=== PATIENT | female | born 1940 | race Caucasian/White ===

== ENCOUNTER 2016-11-23 14:59 | Inpatient (IN) | payer MEDICARE, OTHER ==
--- NOTE | 2016-11-24 16:05 | PCM.HP ---
H&P History of Present Illness - General Date of Service: 11/24/16 History Limitations: Reports: No limitations - History of Present Illness Initial Comments - Free Text/Narative: Patient is a 76 year old male is being admitted under swing bed for continued IV antibiotic. Around 3 days prior to her recent admission, she had chills and sudden pain on the left hip. was brought to [facility] and ultrasound showed large fluid collection on the left hip. cultures grew Strep. seen by ID, antibiotics changed to Ancef. it was recommended for the patient to see Dr. Alicea (patient' s ortho who did surgery on the left hip in the past to see if the hardware needs to be removed. currently, pateint denies any pain on the left hip. no chest pain nor shortness of breath. no headache or dizziness. baseline at home, she has regular bowel movements. she started having diarrhea lat night which she describes as having squishy stools. - Related Data Allergies/Adverse Reactions: Allergies Allergy/AdvReac Type Severity Reaction Status Date / Time Sulfa (Sulfonamide Allergy Itching Verified 11/24/16 16:42 Antibiotics) Home Medications: Home Meds Acetaminophen 325 mg PO Q6H PRN 11/24/16 [History] Alendronate [Fosamax] 70 mg PO Q7D@0600 11/24/16 [History] Aspirin [Ecotrin] 81 mg PO DAILY 11/24/16 [History] Atenolol [Tenormin] 50 mg PO DAILY 11/24/16 [History] Benazepril [Lotensin] 40 mg PO DAILY 11/24/16 [History] Brimonidine Tartrate/Timolol [Combigan 0.2%-0.5% Eye Drops] 1 drop EYEBOTH BID 11/24/16 [History] Brinzolamide [Azopt 1% Ophth Susp] 1 drop EYERT BID 11/24/16 [History] Calcium Carbonate/Vitamin D3 [Oyster Shell 500-Vit D3 200 Tb] 1 tab PO DAILY [History] Cyanocobalamin (Vitamin B12) [Vitamin B12] 1,000 mcg IM .MONTHLY 11/24/16 [ History] Hydrochlorothiazide 25 mg PO DAILY 11/24/16 [History] Insulin Glarg,Human.Rec.Analog [Lantus] 65 units SQ BEDTIME 11/24/16 [History] Insulin Lispro [HumaLOG] 16 units SQ TIDMEALS 11/24/16 [History] Latanoprost [Xalatan 0.005% Ophth Soln] 1 drop EYEBOTH BEDTIME 11/24/16 [History ] Lutein/Minerals/Vit A,C & E [Ocuvite] 1 tab PO DAILY 11/24/16 [History] MO/Pet,Wh/Phenylephrine/Shk Lv [Preparation H Oint] 1 applic RECTAL QID PRN [History] Simvastatin [Zocor] 5 mg PO BEDTIME 11/24/16 [History] amLODIPine [Norvasc] 5 mg PO BEDTIME 11/24/16 [History] metFORMIN [Glucophage] 1,000 mg PO BIDMEALS 11/24/16 [History] H&P Review of Systems - Review of Systems: Review Of Systems: See Below General: Reports: no symptoms HEENT: Reports: no symptoms Pulmonary: Reports: no symptoms Cardiovascular: Reports: no symptoms Gastrointestinal: Reports: Diarrhea Genitourinary: Reports: no symptoms Musculoskeletal: Reports: no symptoms Exam - Exam Exam: See Below - Exam General: alert, oriented HEENT: Conjunctiva clear Lungs: Clear to auscultation, Normal respiratory effort Cardiovascular: regular rate, regular rhythm Abdomen: normal bowel sounds, soft Extremities: normal inspection *Q Meaningful Use (ADM) - VTE *Q VTE Criteria *Q: - Stroke *Q Stroke Criteria *Q: - AMI *Q AMI Criteria *Q: - Problem List (1) Left hip pain SNOMED Code(s): 90094853 ICD Code: M25.552 - PAIN IN LEFT HIP Status: Acute Current Visit: Yes (2) Anemia SNOMED Code(s): 365368235 ICD Code: D64.9 - ANEMIA, UNSPECIFIED Status: Acute Current Visit: Yes Problem List Initiated/Reviewed/Updated: Yes Assessment/Plan Comment:: 1. left septic arthritis - continue Ancef - follow up with ortho as scheduled 2. anemia - latest hemoglobin 11/24/16 9.6 from 9.2 - monitor for signs of bleeding 3. diabetes mellitus - reusme insulin and metormin - glucochecks fasting and premeals 4. hypertension - resume hydrochlorothiazide, amlodipine, benazepril and atenolol 5. dyslipidemia - resume simvastatin 6. DVT prophylaxis 7. code status: DNI DNR
[2016-11-24] MEDS ORDERED: ceFAZolin 1 GM Vial IVPUSH SCH (17:15)
[2016-11-24] MEDS ORDERED: Mineral Oil/Petrolatum/Phenylephrine/Shark Liver Oil Oint 57 GM Tube RECTAL PRN (17:15)
[2016-11-24] MEDS: Insulin Aspart 100 Units/ML 3 ML Pen SUBCUT SCH ×2 (18:14)
[2016-11-24] MEDS: metFORMIN 500 MG Tab PO SCH (18:16)
[2016-11-24] MEDS ORDERED: Latanoprost 0.005% Ophth Soln 2.5 ML Bottle EYEBOTH SCH ×2 (21:00→21:21)
[2016-11-24] MEDS ORDERED: Latanoprost 0.005% Ophth Soln 2.5 ML Bottle EYERT SCH (21:21)
[2016-11-24] MEDS: Insulin Detemir 100 Units/ML 3 ML Pen SUBCUT SCH (21:36)
[2016-11-24] MEDS: amLODIPine 5 MG Tab PO SCH (21:40)
[2016-11-24] MEDS: Simvastatin 10 MG Tab PO SCH (21:40)
[2016-11-24] MEDS: TIMOLOL EYEBOTH SCH (21:42)
[2016-11-24] MEDS: BRIMONIDINE TARTRATE EYEBOTH SCH (21:42)
[2016-11-24] MEDS: EYE EYEBOTH SCH (21:42)
[2016-11-24] MEDS: Latanoprost 0.005% Ophth Soln 2.5 ML Bottle EYEBOTH SCH (22:18)
[2016-11-25] MEDS: ceFAZolin 1 GM in Premix Bag 1 BAG IV SCH ×4 (00:12→21:41)
[2016-11-25] MEDS: Sodium Chloride 0.9% 10 ML Syringe FLUSH SCH ×7 (00:47→21:35)
[2016-11-25] MEDS: Insulin Aspart 100 Units/ML 3 ML Pen SUBCUT SCH ×7 (08:49→17:30)
[2016-11-25] MEDS: Aspirin 81 MG Tab.EC PO SCH (08:56)
[2016-11-25] MEDS: metFORMIN 500 MG Tab PO SCH ×2 (08:57→17:30)
[2016-11-25] MEDS: Lutein/Minerals/Vit A,C & E Tab PO SCH (08:57)
[2016-11-25] MEDS: Hydrochlorothiazide 25 MG Tab PO SCH (08:57)
[2016-11-25] MEDS: Benazepril 10 MG Tab PO SCH (08:58)
[2016-11-25] MEDS: Calcium Carbonate/Vitamin D3 1250 MG-200 Unit Tab PO SCH (08:58)
[2016-11-25] MEDS: Atenolol 50 MG Tab PO SCH (09:00)
[2016-11-25] MEDS: Enoxaparin 40 MG/0.4 ML Syringe SUBCUT SCH (09:00)
[2016-11-25] MEDS ORDERED: Cyanocobalamin (Vitamin B12) 1,000 MCG/ML SDV IM SCH (09:00)
[2016-11-25] MEDS: EYE EYEBOTH SCH ×2 (09:09→21:40)
[2016-11-25] MEDS: BRIMONIDINE TARTRATE EYEBOTH SCH ×2 (09:09→21:40)
[2016-11-25] MEDS: TIMOLOL EYEBOTH SCH ×2 (09:09→21:40)
[2016-11-25] MEDS: Latanoprost 0.005% Ophth Soln 2.5 ML Bottle EYEBOTH SCH (21:26)
[2016-11-25] MEDS: Insulin Detemir 100 Units/ML 3 ML Pen SUBCUT SCH (21:32)
[2016-11-25] MEDS: amLODIPine 5 MG Tab PO SCH (21:34)
[2016-11-25] MEDS: Simvastatin 10 MG Tab PO SCH (21:35)
[2016-11-25] MEDS ORDERED: Insulin Detemir 100 Units/ML 3 ML Pen SUBCUT ONE (21:35)
[2016-11-26] MEDS: ceFAZolin 1 GM in Premix Bag 1 BAG IV SCH ×3 (06:03→21:36)
[2016-11-26] MEDS: Insulin Aspart 100 Units/ML 3 ML Pen SUBCUT SCH ×6 (08:27→17:36)
[2016-11-26] MEDS: metFORMIN 500 MG Tab PO SCH ×2 (08:40→17:37)
[2016-11-26] MEDS: Hydrochlorothiazide 25 MG Tab PO SCH (08:41)
[2016-11-26] MEDS: Aspirin 81 MG Tab.EC PO SCH (08:41)
[2016-11-26] MEDS: Lutein/Minerals/Vit A,C & E Tab PO SCH (08:41)
[2016-11-26] MEDS: Calcium Carbonate/Vitamin D3 1250 MG-200 Unit Tab PO SCH (08:41)
[2016-11-26] MEDS: Benazepril 10 MG Tab PO SCH (08:42)
[2016-11-26] MEDS: Atenolol 50 MG Tab PO SCH (08:43)
[2016-11-26] MEDS: Enoxaparin 40 MG/0.4 ML Syringe SUBCUT SCH (08:44)
[2016-11-26] MEDS: TIMOLOL EYEBOTH SCH ×2 (08:47→20:51)
[2016-11-26] MEDS: BRIMONIDINE TARTRATE EYEBOTH SCH ×2 (08:47→20:51)
[2016-11-26] MEDS: EYE EYEBOTH SCH ×2 (08:47→20:51)
[2016-11-26] MEDS: Sodium Chloride 0.9% 10 ML Syringe FLUSH SCH ×4 (09:24→21:35)
[2016-11-26] MEDS ORDERED: Insulin Detemir 100 Units/ML 3 ML Pen SUBCUT SCH (18:13)
[2016-11-26] MEDS: Simvastatin 10 MG Tab PO SCH (20:49)
[2016-11-26] MEDS: amLODIPine 5 MG Tab PO SCH (20:49)
[2016-11-26] MEDS: Latanoprost 0.005% Ophth Soln 2.5 ML Bottle EYEBOTH SCH (20:53)
[2016-11-27] MEDS: ceFAZolin 1 GM in Premix Bag 1 BAG IV SCH ×3 (05:31→22:05)
[2016-11-27] MEDS: Insulin Aspart 100 Units/ML 3 ML Pen SUBCUT SCH ×6 (08:25→17:04)
[2016-11-27] MEDS: Hydrochlorothiazide 25 MG Tab PO SCH (08:28)
[2016-11-27] MEDS: metFORMIN 500 MG Tab PO SCH ×2 (08:28→17:53)
[2016-11-27] MEDS: Lutein/Minerals/Vit A,C & E Tab PO SCH (08:28)
[2016-11-27] MEDS: Calcium Carbonate/Vitamin D3 1250 MG-200 Unit Tab PO SCH (08:28)
[2016-11-27] MEDS: Enoxaparin 40 MG/0.4 ML Syringe SUBCUT SCH (08:28)
[2016-11-27] MEDS: Atenolol 50 MG Tab PO SCH (08:29)
[2016-11-27] MEDS: Aspirin 81 MG Tab.EC PO SCH (08:29)
[2016-11-27] MEDS: Benazepril 10 MG Tab PO SCH (08:30)
[2016-11-27] MEDS: EYE EYEBOTH SCH ×2 (08:37→21:31)
[2016-11-27] MEDS: BRIMONIDINE TARTRATE EYEBOTH SCH ×2 (08:37→21:31)
[2016-11-27] MEDS: TIMOLOL EYEBOTH SCH ×2 (08:37→21:31)
[2016-11-27] MEDS: Sodium Chloride 0.9% 10 ML Syringe FLUSH SCH ×4 (12:26→22:06)
[2016-11-27] MEDS: Simvastatin 10 MG Tab PO SCH (21:22)
[2016-11-27] MEDS: amLODIPine 5 MG Tab PO SCH (21:24)
[2016-11-27] MEDS: Latanoprost 0.005% Ophth Soln 2.5 ML Bottle EYEBOTH SCH (21:26)
[2016-11-27] MEDS: Insulin Detemir 100 Units/ML 3 ML Pen SUBCUT SCH (21:30)
[2016-11-28] MEDS: ceFAZolin 1 GM in Premix Bag 1 BAG IV SCH ×3 (05:33→21:42)
[2016-11-28] MEDS: Insulin Aspart 100 Units/ML 3 ML Pen SUBCUT SCH ×6 (08:25→17:58)
[2016-11-28] MEDS: BRIMONIDINE TARTRATE EYEBOTH SCH ×2 (09:12→21:37)
[2016-11-28] MEDS: EYE EYEBOTH SCH ×2 (09:12→21:37)
[2016-11-28] MEDS: TIMOLOL EYEBOTH SCH ×2 (09:12→21:37)
[2016-11-28] MEDS: Enoxaparin 40 MG/0.4 ML Syringe SUBCUT SCH (09:12)
[2016-11-28] MEDS: Hydrochlorothiazide 25 MG Tab PO SCH (09:13)
[2016-11-28] MEDS: Lutein/Minerals/Vit A,C & E Tab PO SCH (09:13)
[2016-11-28] MEDS: Calcium Carbonate/Vitamin D3 1250 MG-200 Unit Tab PO SCH (09:13)
[2016-11-28] MEDS: metFORMIN 500 MG Tab PO SCH ×2 (09:13→17:56)
[2016-11-28] MEDS: Aspirin 81 MG Tab.EC PO SCH (09:13)
[2016-11-28] MEDS: Atenolol 50 MG Tab PO SCH (09:14)
[2016-11-28] MEDS: Sodium Chloride 0.9% 10 ML Syringe FLUSH SCH ×4 (09:20→21:38)
[2016-11-28] MEDS: Benazepril 10 MG Tab PO SCH (10:20)
[2016-11-28] MEDS: amLODIPine 5 MG Tab PO SCH (21:35)
[2016-11-28] MEDS: Simvastatin 10 MG Tab PO SCH (21:36)
[2016-11-28] MEDS: Latanoprost 0.005% Ophth Soln 2.5 ML Bottle EYEBOTH SCH (21:38)
[2016-11-28] MEDS: Insulin Detemir 100 Units/ML 3 ML Pen SUBCUT SCH (21:39)
[2016-11-29] MEDS: ceFAZolin 1 GM in Premix Bag 1 BAG IV SCH ×3 (06:14→21:28)
[2016-11-29] MEDS: Insulin Aspart 100 Units/ML 3 ML Pen SUBCUT SCH ×6 (08:30→18:03)
[2016-11-29] MEDS: metFORMIN 500 MG Tab PO SCH ×2 (08:33→17:19)
[2016-11-29] MEDS: Calcium Carbonate/Vitamin D3 1250 MG-200 Unit Tab PO SCH (08:33)
[2016-11-29] MEDS: Atenolol 50 MG Tab PO SCH (08:34)
[2016-11-29] MEDS: Aspirin 81 MG Tab.EC PO SCH (08:34)
[2016-11-29] MEDS: Lutein/Minerals/Vit A,C & E Tab PO SCH (08:34)
[2016-11-29] MEDS: Hydrochlorothiazide 25 MG Tab PO SCH (08:34)
[2016-11-29] MEDS: Benazepril 10 MG Tab PO SCH (08:35)
[2016-11-29] MEDS: Enoxaparin 40 MG/0.4 ML Syringe SUBCUT SCH (08:36)
[2016-11-29] MEDS: EYE EYEBOTH SCH ×2 (08:38→21:27)
[2016-11-29] MEDS: TIMOLOL EYEBOTH SCH ×2 (08:38→21:27)
[2016-11-29] MEDS: BRIMONIDINE TARTRATE EYEBOTH SCH ×2 (08:38→21:27)
[2016-11-29] MEDS: Sodium Chloride 0.9% 10 ML Syringe FLUSH PRN (12:59)
[2016-11-29] MEDS: Insulin Detemir 100 Units/ML 3 ML Pen SUBCUT SCH (21:22)
[2016-11-29] MEDS: amLODIPine 5 MG Tab PO SCH (21:23)
[2016-11-29] MEDS: Simvastatin 10 MG Tab PO SCH (21:25)
[2016-11-29] MEDS: Latanoprost 0.005% Ophth Soln 2.5 ML Bottle EYEBOTH SCH (21:26)
[2016-11-30] MEDS: ceFAZolin 1 GM in Premix Bag 1 BAG IV SCH ×3 (05:27→22:40)
[2016-11-30] MEDS: Insulin Aspart 100 Units/ML 3 ML Pen SUBCUT SCH ×6 (08:17→17:35)
[2016-11-30] MEDS: metFORMIN 500 MG Tab PO SCH ×2 (08:18→17:36)
[2016-11-30] MEDS: Benazepril 10 MG Tab PO SCH (08:19)
[2016-11-30] MEDS: Aspirin 81 MG Tab.EC PO SCH (08:19)
[2016-11-30] MEDS: Atenolol 50 MG Tab PO SCH (08:20)
[2016-11-30] MEDS: Hydrochlorothiazide 25 MG Tab PO SCH (08:20)
[2016-11-30] MEDS: Calcium Carbonate/Vitamin D3 1250 MG-200 Unit Tab PO SCH (08:20)
[2016-11-30] MEDS: Lutein/Minerals/Vit A,C & E Tab PO SCH (08:20)
[2016-11-30] MEDS: Enoxaparin 40 MG/0.4 ML Syringe SUBCUT SCH (08:22)
[2016-11-30] MEDS: TIMOLOL EYEBOTH SCH ×2 (08:22→21:06)
[2016-11-30] MEDS: BRIMONIDINE TARTRATE EYEBOTH SCH ×2 (08:22→21:06)
[2016-11-30] MEDS: EYE EYEBOTH SCH ×2 (08:22→21:06)
--- NOTE | 2016-11-30 14:14 | PCM.PN ---
- General Info Date of Service: 11/30/16 Subjective Update: pt states she is doing quite well. states no pain in hip since had steroid injection during acute caure. tolerating antibx- no rash, nov/ no diarrhea. Functional Status: Reports: pain controlled, tolerating diet, ambulating, urinating - Review of Systems General: Reports: no symptoms HEENT: Reports: no symptoms Pulmonary: Reports: no symptoms Cardiovascular: Reports: no symptoms Gastrointestinal: Reports: No symptoms Genitourinary: Reports: no symptoms Musculoskeletal: Reports: no symptoms Skin: Reports: no symptoms - Patient Data Vitals - most recent: Last Vital Signs Temp 36.9 C 11/30/16 07:00 Pulse 65 11/30/16 07:00 Resp 20 11/30/16 07:00 BP 139/48 L 11/30/16 07:00 Pulse Ox 97 11/30/16 07:00 Weight - most recent: 71.305 kg I&O - last 24 hours: Intake & Output 11/29/16 11/30/16 11/30/16 22:59 06:59 14:59 Intake Total 942 065 8903 Output Total 900 Balance 240 -297 1260 Lab Results last 24 hrs: Laboratory Results - last 24 hr 11/29/16 11/29/16 11/30/16 Range/Units 16:55 20:57 06:12 WBC (5.0-10.0) 10^3/uL RBC (4.2-5.4) 10^6/uL Hgb (12.0-16.0) g/dL Hct (37.0-47.0) % MCV (80-100) fL MCH (27.0-34.0) pg MCHC (33.0-35.0) g/dL Plt Count (150-450) 10^3/uL Neut % (Auto) (42.2-75.2) % Lymph % (Auto) (20.5-50.1) % Tama % (Auto) (2-8) % Eos % (Auto) (1.0-3.0) % Baso % (Auto) (0.0-1.0) % ESR (0-20) mm/hr Creatinine 0.7 (0.6-1.3) mg/dL Est Cr Clr Drug Dosing 64.41 mL/min Estimated GFR (MDRD) > 60 POC Glucose 92 70 L (83-110) mg/dl ALT 21 (10-60) IU/L C-Reactive Protein (0.0-1.3) mg/dL 11/30/16 11/30/16 11/30/16 Range/Units 06:12 06:12 07:49 WBC 4.4 L (5.0-10.0) 10^3/uL RBC 3.49 L (4.2-5.4) 10^6/uL Hgb 10.2 L (12.0-16.0) g/dL Hct 32.2 L (37.0-47.0) % MCV 92.3 (80-100) fL MCH 29.2 (27.0-34.0) pg MCHC 31.7 L (33.0-35.0) g/dL Plt Count 215 (150-450) 10^3/uL Neut % (Auto) 67.5 (42.2-75.2) % Lymph % (Auto) 19.9 L (20.5-50.1) % Tama % (Auto) 10.5 H (2-8) % Eos % (Auto) 1.6 (1.0-3.0) % Baso % (Auto) 0.5 (0.0-1.0) % ESR 49 H (0-20) mm/hr Creatinine (0.6-1.3) mg/dL Est Cr Clr Drug Dosing mL/min Estimated GFR (MDRD) POC Glucose 143 H (83-110) mg/dl ALT (10-60) IU/L C-Reactive Protein < 0.5 (0.0-1.3) mg/dL 11/30/16 Range/Units 11:11 WBC (5.0-10.0) 10^3/uL RBC (4.2-5.4) 10^6/uL Hgb (12.0-16.0) g/dL Hct (37.0-47.0) % MCV (80-100) fL MCH (27.0-34.0) pg MCHC (33.0-35.0) g/dL Plt Count (150-450) 10^3/uL Neut % (Auto) (42.2-75.2) % Lymph % (Auto) (20.5-50.1) % Tama % (Auto) (2-8) % Eos % (Auto) (1.0-3.0) % Baso % (Auto) (0.0-1.0) % ESR (0-20) mm/hr Creatinine (0.6-1.3) mg/dL Est Cr Clr Drug Dosing mL/min Estimated GFR (MDRD) POC Glucose 137 H (83-110) mg/dl ALT (10-60) IU/L C-Reactive Protein (0.0-1.3) mg/dL Med Orders - Current: Current Medications Acetaminophen (Tylenol) 325 mg PO Q6H PRN PRN Reason: Pain (mild 1-3) Alendronate Sodium (Fosamax) 70 mg PO Q7D@0600 [facility] Last Admin: 11/25/16 05:41 Dose: 70 mg Amlodipine Besylate (Norvasc) 5 mg PO BEDTIME [facility] Last Admin: 11/29/16 21:23 Dose: 5 mg Aspirin (Halfprin) 81 mg PO DAILY [facility] Last Admin: 11/30/16 08:19 Dose: 81 mg Atenolol (Tenormin) 50 mg PO DAILY [facility] Last Admin: 11/30/16 08:20 Dose: 50 mg Benazepril HCl (Lotensin) 40 mg PO DAILY [facility] Last Admin: 11/30/16 08:19 Dose: 40 mg Brinzolamide (Azopt 1% Ophth Susp) 0 ml EYERT BID [facility] Last Admin: 11/30/16 08:20 Dose: 1 drop Calcium Carbonate (Calcium Carbonate/Vitamin D 1250 Mg-200 Unit) 1 tab PO DAILY [facility] Last Admin: 11/30/16 08:20 Dose: 1 tab Cyanocobalamin (Vitamin B12) 1,000 mcg IM Q30D [facility] Last Admin: 11/25/16 12:09 Dose: 1,000 mcg Enoxaparin Sodium (Lovenox) 40 mg SUBCUT DAILY [facility] Last Admin: 11/30/16 08:22 Dose: 40 mg Hydrochlorothiazide (Hydrochlorothiazide) 25 mg PO DAILY [facility] Last Admin: 11/30/16 08:20 Dose: 25 mg Cefazolin Sodium/Dextrose 1 gm (/ Premix) 50 mls @ 100 mls/hr IV Q8HR [facility] Last Admin: 11/30/16 05:27 Dose: 100 mls/hr Insulin Aspart (Novolog) 16 unit SUBCUT TIDMEALS [facility] Last Admin: 11/30/16 12:51 Dose: 16 units Insulin Aspart (Novolog) 0 unit SUBCUT TIDMEALS [facility] PRN Reason: Protocol Last Admin: 11/30/16 12:45 Dose: Not Given Insulin Detemir (Levemir) 18 unit SUBCUT BEDTIME [facility] Last Admin: 11/29/16 21:22 Dose: 18 units Latanoprost (Xalatan 0.005% Ophth Soln) 0 ml EYEBOTH BEDTIME [facility] Last Admin: 11/29/16 21:26 Dose: 1 drop Metformin HCl (Glucophage) 1,000 mg PO BIDMEALS [facility] Last Admin: 11/30/16 08:18 Dose: 1,000 mg Multivitamins/Minerals (I-Rhonda) 1 each PO DAILY [facility] Last Admin: 11/30/16 08:20 Dose: 1 each *Pom*Brimonidine Tartrate/Timolol [ Combigan 0.2%-0.5%] Eye Drop 1 drop EYEBOTH BID [facility] Last Admin: 11/30/16 08:22 Dose: 1 drop Phenyleph/Shark Oil/Min Oil/Petrol (Preparation H Oint) 0 gm RECTAL QID PRN PRN Reason: Hemorrhoids Simvastatin (Zocor) 5 mg PO BEDTIME [facility] Last Admin: 11/29/16 21:25 Dose: 5 mg Sodium Chloride (Saline Flush) 10 ml FLUSH ASDIRECTED PRN PRN Reason: Keep Vein Open Last Admin: 11/29/16 12:59 Dose: 10 ml Discontinued Medications Cefazolin Sodium (Ancef) 1 gm IVPUSH Q8H [facility] Last Admin: 11/24/16 18:16 Dose: 1 gm Insulin Detemir (Levemir) 65 unit SUBCUT BEDTIME [facility] Last Admin: 11/25/16 21:32 Dose: Not Given Insulin Detemir (Levemir) 15 unit SUBCUT ONETIME ONE Stop: 11/25/16 21:36 Last Admin: 11/25/16 21:45 Dose: 15 units Insulin Detemir (Levemir) 0 unit SUBCUT BEDTIME [facility] Last Admin: 11/26/16 21:02 Dose: 15 units Latanoprost (Xalatan 0.005% Ophth Soln) 0 ml EYEBOTH BEDTIME [facility] Last Admin: 11/24/16 22:33 Dose: Not Given Latanoprost (Xalatan 0.005% Ophth Soln) 0 ml EYERT BEDTIME [facility] Latanoprost (Xalatan 0.005% Ophth Soln) 0 ml EYEBOTH BEDTIME [facility] Sodium Chloride (Saline Flush) 10 ml FLUSH QID [facility] Last Admin: 11/28/16 21:38 Dose: 10 ml - Exam General: alert, oriented, cooperative, no acute distress Lungs: Clear to auscultation, Normal respiratory effort Cardiovascular: regular rate, regular rhythm Extremities: no edema - Problem List & Annotations (1) Septic joint SNOMED Code(s): 243869910 Code(s): M00.9 - PYOGENIC ARTHRITIS, UNSPECIFIED Status: Acute Current Visit: Yes Qualifiers: Septic arthritis location: hip Laterality: left - Problem List Review Problem List Initiated/Reviewed/Updated: Yes - My Orders Last 24 Hours: My Active Orders 12/07/16 06:00 ALANINE AMINOTRANSFERASE,ALT [CHEM] Routine CBC WITH AUTO DIFF [HEME] Routine CREATININE W/GFR [CHEM] Routine CRP [C-REACTIVE PROTEIN] [CHEM] Routine ESR [SEDIMENTATION RATE MANUAL] [HEME] Routine - Plan Plan:: 1. left septic arthritis -no pain. no fevers. tolerating antibx - continue Ancef - follow up with ortho as scheduled - dr schmidt -f/u with Adiel today- cont current regimen -repeat labs for ID appoitnm next week ordered 2. anemia - latest hemoglobin 11/24/16 9.6 from 9.2 - monitor for signs of bleeding 3. diabetes mellitus - cont insulin and metformin - glucochecks fasting and premeals - acceptable range 4. hypertension - cont hydrochlorothiazide, amlodipine, benazepril and atenolol 5. dyslipidemia - cont simvastatin 6. DVT prophylaxis 7. code status: DNI DNR
[2016-11-30] MEDS: Insulin Detemir 100 Units/ML 3 ML Pen SUBCUT SCH (21:01)
[2016-11-30] MEDS: amLODIPine 5 MG Tab PO SCH (21:11)
[2016-11-30] MEDS: Simvastatin 10 MG Tab PO SCH (21:11)
[2016-11-30] MEDS: Latanoprost 0.005% Ophth Soln 2.5 ML Bottle EYEBOTH SCH (21:14)
[2016-11-30] MEDS: Sodium Chloride 0.9% 10 ML Syringe FLUSH PRN (22:39)
[2016-12-01] MEDS: Sodium Chloride 0.9% 10 ML Syringe FLUSH PRN ×4 (05:43→22:56)
[2016-12-01] MEDS: ceFAZolin 1 GM in Premix Bag 1 BAG IV SCH ×3 (05:43→22:25)
[2016-12-01] MEDS: Insulin Aspart 100 Units/ML 3 ML Pen SUBCUT SCH ×6 (08:51→17:47)
[2016-12-01] MEDS: Aspirin 81 MG Tab.EC PO SCH (08:55)
[2016-12-01] MEDS: metFORMIN 500 MG Tab PO SCH ×2 (08:55→17:48)
[2016-12-01] MEDS: Enoxaparin 40 MG/0.4 ML Syringe SUBCUT SCH (08:55)
[2016-12-01] MEDS: Benazepril 10 MG Tab PO SCH (08:55)
[2016-12-01] MEDS: Atenolol 50 MG Tab PO SCH (08:56)
[2016-12-01] MEDS: Calcium Carbonate/Vitamin D3 1250 MG-200 Unit Tab PO SCH (08:56)
[2016-12-01] MEDS: Hydrochlorothiazide 25 MG Tab PO SCH (08:56)
[2016-12-01] MEDS: Lutein/Minerals/Vit A,C & E Tab PO SCH (08:56)
[2016-12-01] MEDS: TIMOLOL EYEBOTH SCH ×2 (09:49→20:39)
[2016-12-01] MEDS: BRIMONIDINE TARTRATE EYEBOTH SCH ×2 (09:49→20:39)
[2016-12-01] MEDS: EYE EYEBOTH SCH ×2 (09:49→20:39)
[2016-12-01] MEDS: Latanoprost 0.005% Ophth Soln 2.5 ML Bottle EYEBOTH SCH (20:40)
[2016-12-01] MEDS: amLODIPine 5 MG Tab PO SCH (20:44)
[2016-12-01] MEDS: Simvastatin 10 MG Tab PO SCH (20:46)
[2016-12-01] MEDS: Insulin Detemir 100 Units/ML 3 ML Pen SUBCUT SCH (21:41)
[2016-12-02] MEDS: Sodium Chloride 0.9% 10 ML Syringe FLUSH PRN ×4 (05:42→23:09)
[2016-12-02] MEDS: ceFAZolin 1 GM in Premix Bag 1 BAG IV SCH ×3 (05:47→22:38)
[2016-12-02] MEDS: Insulin Aspart 100 Units/ML 3 ML Pen SUBCUT SCH ×6 (08:19→18:03)
[2016-12-02] MEDS: metFORMIN 500 MG Tab PO SCH ×2 (08:26→18:01)
[2016-12-02] MEDS: BRIMONIDINE TARTRATE EYEBOTH SCH ×2 (08:28→21:14)
[2016-12-02] MEDS: EYE EYEBOTH SCH ×2 (08:28→21:14)
[2016-12-02] MEDS: TIMOLOL EYEBOTH SCH ×2 (08:28→21:14)
[2016-12-02] MEDS: Calcium Carbonate/Vitamin D3 1250 MG-200 Unit Tab PO SCH (08:28)
[2016-12-02] MEDS: Hydrochlorothiazide 25 MG Tab PO SCH (08:29)
[2016-12-02] MEDS: Aspirin 81 MG Tab.EC PO SCH (08:29)
[2016-12-02] MEDS: Benazepril 10 MG Tab PO SCH (08:30)
[2016-12-02] MEDS: Lutein/Minerals/Vit A,C & E Tab PO SCH (08:30)
[2016-12-02] MEDS: Atenolol 50 MG Tab PO SCH (08:31)
[2016-12-02] MEDS: Enoxaparin 40 MG/0.4 ML Syringe SUBCUT SCH (08:32)
[2016-12-02] MEDS: Insulin Detemir 100 Units/ML 3 ML Pen SUBCUT SCH (21:09)
[2016-12-02] MEDS: Simvastatin 10 MG Tab PO SCH (21:16)
[2016-12-02] MEDS: amLODIPine 5 MG Tab PO SCH (21:18)
[2016-12-02] MEDS: Latanoprost 0.005% Ophth Soln 2.5 ML Bottle EYEBOTH SCH (21:19)
[2016-12-03] MEDS: Sodium Chloride 0.9% 10 ML Syringe FLUSH PRN ×2 (05:42→21:49)
[2016-12-03] MEDS: ceFAZolin 1 GM in Premix Bag 1 BAG IV SCH ×3 (05:43→21:45)
[2016-12-03] MEDS: Insulin Aspart 100 Units/ML 3 ML Pen SUBCUT SCH ×6 (08:59→17:26)
[2016-12-03] MEDS: Enoxaparin 40 MG/0.4 ML Syringe SUBCUT SCH (09:00)
[2016-12-03] MEDS: metFORMIN 500 MG Tab PO SCH ×2 (09:01→17:25)
[2016-12-03] MEDS: Hydrochlorothiazide 25 MG Tab PO SCH (09:01)
[2016-12-03] MEDS: Lutein/Minerals/Vit A,C & E Tab PO SCH (09:01)
[2016-12-03] MEDS: Calcium Carbonate/Vitamin D3 1250 MG-200 Unit Tab PO SCH (09:01)
[2016-12-03] MEDS: Atenolol 50 MG Tab PO SCH (09:01)
[2016-12-03] MEDS: Benazepril 10 MG Tab PO SCH (09:06)
[2016-12-03] MEDS: Aspirin 81 MG Tab.EC PO SCH (09:06)
[2016-12-03] MEDS: BRIMONIDINE TARTRATE EYEBOTH SCH ×2 (09:10→21:53)
[2016-12-03] MEDS: EYE EYEBOTH SCH ×2 (09:10→21:53)
[2016-12-03] MEDS: TIMOLOL EYEBOTH SCH ×2 (09:10→21:53)
--- NOTE | 2016-12-03 11:51 | PCM.PN ---
- General Info Date of Service: 12/03/16 Subjective Update: pt has no complaints cont to state no pain in hip. no redness /tenderness over hip region. tolerating antibx well. no n/v. no diarrhea. no rashes. Functional Status: Reports: pain controlled, tolerating diet, ambulating, urinating - Review of Systems General: Reports: no symptoms Pulmonary: Reports: no symptoms Cardiovascular: Reports: no symptoms Gastrointestinal: Reports: No symptoms Musculoskeletal: Reports: no symptoms Skin: Reports: no symptoms - Patient Data Vitals - most recent: Last Vital Signs Temp 36.2 C 12/03/16 07:00 Pulse 76 12/03/16 09:01 Resp 20 12/03/16 07:00 BP 138/52 L 12/03/16 09:06 Pulse Ox 98 12/03/16 07:00 Weight - most recent: 71.305 kg I&O - last 24 hours: Intake & Output 12/02/16 12/03/16 12/03/16 22:59 06:59 14:59 Intake Total 200 443 Balance 200 443 Lab Results last 24 hrs: Laboratory Results - last 24 hr 12/02/16 12/02/16 12/03/16 Range/Units 17:02 20:53 07:34 POC Glucose 186 H 218 H 136 H (83-110) mg/dl 12/03/16 Range/Units 10:31 POC Glucose 254 H (83-110) mg/dl Med Orders - Current: Current Medications Acetaminophen (Tylenol) 325 mg PO Q6H PRN PRN Reason: Pain (mild 1-3) Alendronate Sodium (Fosamax) 70 mg PO Q7D@0600 [facility] Last Admin: 12/02/16 05:50 Dose: 70 mg Amlodipine Besylate (Norvasc) 5 mg PO BEDTIME [facility] Last Admin: 12/02/16 21:18 Dose: 5 mg Aspirin (Halfprin) 81 mg PO DAILY [facility] Last Admin: 12/03/16 09:06 Dose: 81 mg Atenolol (Tenormin) 50 mg PO DAILY [facility] Last Admin: 12/03/16 09:01 Dose: 50 mg Benazepril HCl (Lotensin) 40 mg PO DAILY [facility] Last Admin: 12/03/16 09:06 Dose: 40 mg Brinzolamide (Azopt 1% Ophth Susp) 0 ml EYERT BID [facility] Last Admin: 12/03/16 09:08 Dose: 1 drop Calcium Carbonate (Calcium Carbonate/Vitamin D 1250 Mg-200 Unit) 1 tab PO DAILY [facility] Last Admin: 12/03/16 09:01 Dose: 1 tab Cyanocobalamin (Vitamin B12) 1,000 mcg IM Q30D [facility] Last Admin: 11/25/16 12:09 Dose: 1,000 mcg Enoxaparin Sodium (Lovenox) 40 mg SUBCUT DAILY [facility] Last Admin: 12/03/16 09:00 Dose: 40 mg Hydrochlorothiazide (Hydrochlorothiazide) 25 mg PO DAILY [facility] Last Admin: 12/03/16 09:01 Dose: 25 mg Cefazolin Sodium/Dextrose 1 gm (/ Premix) 50 mls @ 100 mls/hr IV Q8HR [facility] Last Admin: 12/03/16 05:43 Dose: 100 mls/hr Insulin Aspart (Novolog) 16 unit SUBCUT TIDMEALS [facility] Last Admin: 12/03/16 08:59 Dose: 16 units Insulin Aspart (Novolog) 0 unit SUBCUT TIDMEALS [facility] PRN Reason: Protocol Last Admin: 12/03/16 09:09 Dose: Not Given Insulin Detemir (Levemir) 18 unit SUBCUT BEDTIME [facility] Last Admin: 12/02/16 21:09 Dose: 18 units Latanoprost (Xalatan 0.005% Ophth Soln) 0 ml EYEBOTH BEDTIME [facility] Last Admin: 12/02/16 21:19 Dose: 1 drop Metformin HCl (Glucophage) 1,000 mg PO BIDMEALS [facility] Last Admin: 12/03/16 09:01 Dose: 1,000 mg Multivitamins/Minerals (I-Rhonda) 1 each PO DAILY [facility] Last Admin: 12/03/16 09:01 Dose: 1 each *Pom*Brimonidine Tartrate/Timolol [ Combigan 0.2%-0.5%] Eye Drop 1 drop EYEBOTH BID [facility] Last Admin: 12/03/16 09:10 Dose: 1 drop Phenyleph/Shark Oil/Min Oil/Petrol (Preparation H Oint) 0 gm RECTAL QID PRN PRN Reason: Hemorrhoids Simvastatin (Zocor) 5 mg PO BEDTIME [facility] Last Admin: 12/02/16 21:16 Dose: 5 mg Sodium Chloride (Saline Flush) 10 ml FLUSH ASDIRECTED PRN PRN Reason: Keep Vein Open Last Admin: 12/03/16 05:42 Dose: 10 ml Discontinued Medications Cefazolin Sodium (Ancef) 1 gm IVPUSH Q8H [facility] Last Admin: 11/24/16 18:16 Dose: 1 gm Insulin Detemir (Levemir) 65 unit SUBCUT BEDTIME [facility] Last Admin: 11/25/16 21:32 Dose: Not Given Insulin Detemir (Levemir) 15 unit SUBCUT ONETIME ONE Stop: 11/25/16 21:36 Last Admin: 11/25/16 21:45 Dose: 15 units Insulin Detemir (Levemir) 0 unit SUBCUT BEDTIME [facility] Last Admin: 11/26/16 21:02 Dose: 15 units Latanoprost (Xalatan 0.005% Ophth Soln) 0 ml EYEBOTH BEDTIME [facility] Last Admin: 11/24/16 22:33 Dose: Not Given Latanoprost (Xalatan 0.005% Ophth Soln) 0 ml EYERT BEDTIME [facility] Latanoprost (Xalatan 0.005% Ophth Soln) 0 ml EYEBOTH BEDTIME [facility] Sodium Chloride (Saline Flush) 10 ml FLUSH QID [facility] Last Admin: 11/28/16 21:38 Dose: 10 ml - Exam General: alert, oriented, cooperative, no acute distress Lungs: Clear to auscultation, Normal respiratory effort Cardiovascular: regular rate, regular rhythm Extremities: no edema Skin: warm, other (no redness /pain over left hip region) - Problem List & Annotations (1) Septic joint SNOMED Code(s): 815456423 Code(s): M00.9 - PYOGENIC ARTHRITIS, UNSPECIFIED Status: Acute Current Visit: Yes Qualifiers: Septic arthritis location: hip Laterality: left - Problem List Review Problem List Initiated/Reviewed/Updated: Yes - My Orders Last 24 Hours: My Active Orders 12/07/16 06:00 ALANINE AMINOTRANSFERASE,ALT [CHEM] Routine CBC WITH AUTO DIFF [HEME] Routine CREATININE W/GFR [CHEM] Routine CRP [C-REACTIVE PROTEIN] [CHEM] Routine ESR [SEDIMENTATION RATE MANUAL] [HEME] Routine - Plan Plan:: 1. left septic arthritis -no pain. no fevers. tolerating antibx - continue Ancef - follow up with ortho as scheduled - dr schmidt -f/u with Adiel next week cont current regimen -repeat labs for ID appointment next week already ordered 2. anemia - latest hemoglobin 11/24/16 9.6 from 9.2 - monitor for signs of bleeding 3. diabetes mellitus - cont insulin and metformin - glucochecks fasting and premeals - acceptable range 4. hypertension - cont hydrochlorothiazide, amlodipine, benazepril and atenolol 5. dyslipidemia - cont simvastatin 6. DVT prophylaxis 7. code status: DNI DNR
[2016-12-03] MEDS: Insulin Detemir 100 Units/ML 3 ML Pen SUBCUT SCH (21:39)
[2016-12-03] MEDS: amLODIPine 5 MG Tab PO SCH (21:42)
[2016-12-03] MEDS: Simvastatin 10 MG Tab PO SCH (21:42)
[2016-12-03] MEDS: Latanoprost 0.005% Ophth Soln 2.5 ML Bottle EYEBOTH SCH (21:52)
[2016-12-04] MEDS: ceFAZolin 1 GM in Premix Bag 1 BAG IV SCH ×3 (06:02→22:00)
[2016-12-04] MEDS: Sodium Chloride 0.9% 10 ML Syringe FLUSH PRN ×3 (06:02→22:00)
[2016-12-04] MEDS: metFORMIN 500 MG Tab PO SCH ×2 (08:47→17:14)
[2016-12-04] MEDS: Atenolol 50 MG Tab PO SCH (08:47)
[2016-12-04] MEDS: Hydrochlorothiazide 25 MG Tab PO SCH (08:47)
[2016-12-04] MEDS: Calcium Carbonate/Vitamin D3 1250 MG-200 Unit Tab PO SCH (08:47)
[2016-12-04] MEDS: TIMOLOL EYEBOTH SCH ×2 (08:48→20:36)
[2016-12-04] MEDS: EYE EYEBOTH SCH ×2 (08:48→20:36)
[2016-12-04] MEDS: Aspirin 81 MG Tab.EC PO SCH (08:48)
[2016-12-04] MEDS: Lutein/Minerals/Vit A,C & E Tab PO SCH (08:48)
[2016-12-04] MEDS: Benazepril 10 MG Tab PO SCH (08:48)
[2016-12-04] MEDS: BRIMONIDINE TARTRATE EYEBOTH SCH ×2 (08:48→20:36)
[2016-12-04] MEDS: Enoxaparin 40 MG/0.4 ML Syringe SUBCUT SCH (08:49)
[2016-12-04] MEDS: Insulin Aspart 100 Units/ML 3 ML Pen SUBCUT SCH ×6 (08:49→17:15)
[2016-12-04] MEDS: Simvastatin 10 MG Tab PO SCH (20:33)
[2016-12-04] MEDS: amLODIPine 5 MG Tab PO SCH (20:33)
[2016-12-04] MEDS: Latanoprost 0.005% Ophth Soln 2.5 ML Bottle EYEBOTH SCH (20:36)
[2016-12-04] MEDS: Insulin Detemir 100 Units/ML 3 ML Pen SUBCUT SCH (20:57)
[2016-12-05] MEDS: ceFAZolin 1 GM in Premix Bag 1 BAG IV SCH ×3 (05:55→21:58)
[2016-12-05] MEDS: Insulin Aspart 100 Units/ML 3 ML Pen SUBCUT SCH ×6 (07:58→17:10)
[2016-12-05] MEDS: metFORMIN 500 MG Tab PO SCH ×2 (07:58→17:09)
[2016-12-05] MEDS: TIMOLOL EYEBOTH SCH ×2 (09:08→21:50)
[2016-12-05] MEDS: Enoxaparin 40 MG/0.4 ML Syringe SUBCUT SCH (09:08)
[2016-12-05] MEDS: BRIMONIDINE TARTRATE EYEBOTH SCH ×2 (09:08→21:50)
[2016-12-05] MEDS: EYE EYEBOTH SCH ×2 (09:08→21:50)
[2016-12-05] MEDS: Aspirin 81 MG Tab.EC PO SCH (09:09)
[2016-12-05] MEDS: Lutein/Minerals/Vit A,C & E Tab PO SCH (09:09)
[2016-12-05] MEDS: Calcium Carbonate/Vitamin D3 1250 MG-200 Unit Tab PO SCH (09:09)
[2016-12-05] MEDS: Atenolol 50 MG Tab PO SCH (09:09)
[2016-12-05] MEDS: Benazepril 10 MG Tab PO SCH (09:09)
[2016-12-05] MEDS: Hydrochlorothiazide 25 MG Tab PO SCH (09:09)
[2016-12-05] MEDS: Sodium Chloride 0.9% 10 ML Syringe FLUSH PRN (14:14)
[2016-12-05] MEDS: Insulin Detemir 100 Units/ML 3 ML Pen SUBCUT SCH (21:50)
[2016-12-05] MEDS: amLODIPine 5 MG Tab PO SCH (21:52)
[2016-12-05] MEDS: Simvastatin 10 MG Tab PO SCH (21:52)
[2016-12-05] MEDS: Latanoprost 0.005% Ophth Soln 2.5 ML Bottle EYEBOTH SCH (21:55)
[2016-12-06] MEDS: ceFAZolin 1 GM in Premix Bag 1 BAG IV SCH ×3 (05:50→21:43)
[2016-12-06] MEDS: Insulin Aspart 100 Units/ML 3 ML Pen SUBCUT SCH ×6 (07:54→17:22)
[2016-12-06] MEDS: metFORMIN 500 MG Tab PO SCH ×2 (07:54→17:22)
[2016-12-06] MEDS: EYE EYEBOTH SCH ×2 (10:02→21:42)
[2016-12-06] MEDS: BRIMONIDINE TARTRATE EYEBOTH SCH ×2 (10:02→21:42)
[2016-12-06] MEDS: TIMOLOL EYEBOTH SCH ×2 (10:02→21:42)
[2016-12-06] MEDS: Lutein/Minerals/Vit A,C & E Tab PO SCH (10:03)
[2016-12-06] MEDS: Aspirin 81 MG Tab.EC PO SCH (10:03)
[2016-12-06] MEDS: Calcium Carbonate/Vitamin D3 1250 MG-200 Unit Tab PO SCH (10:04)
[2016-12-06] MEDS: Benazepril 10 MG Tab PO SCH (10:04)
[2016-12-06] MEDS: Atenolol 50 MG Tab PO SCH (10:04)
[2016-12-06] MEDS: Hydrochlorothiazide 25 MG Tab PO SCH (10:04)
[2016-12-06] MEDS: Enoxaparin 40 MG/0.4 ML Syringe SUBCUT SCH (10:05)
[2016-12-06] MEDS: Sodium Chloride 0.9% 10 ML Syringe FLUSH PRN (10:06)
[2016-12-06] MEDS: Simvastatin 10 MG Tab PO SCH (21:42)
[2016-12-06] MEDS: Latanoprost 0.005% Ophth Soln 2.5 ML Bottle EYEBOTH SCH (21:42)
[2016-12-06] MEDS: amLODIPine 5 MG Tab PO SCH (21:42)
[2016-12-06] MEDS: Insulin Detemir 100 Units/ML 3 ML Pen SUBCUT SCH (21:42)
[2016-12-07] MEDS: ceFAZolin 1 GM in Premix Bag 1 BAG IV SCH ×3 (05:41→21:44)
[2016-12-07] MEDS: Insulin Aspart 100 Units/ML 3 ML Pen SUBCUT SCH ×6 (08:06→17:40)
[2016-12-07] MEDS: metFORMIN 500 MG Tab PO SCH ×2 (08:09→17:41)
[2016-12-07] MEDS: BRIMONIDINE TARTRATE EYEBOTH SCH ×2 (08:10→20:34)
[2016-12-07] MEDS: TIMOLOL EYEBOTH SCH ×2 (08:10→20:34)
[2016-12-07] MEDS: EYE EYEBOTH SCH ×2 (08:10→20:34)
[2016-12-07] MEDS: Hydrochlorothiazide 25 MG Tab PO SCH (08:11)
[2016-12-07] MEDS: Aspirin 81 MG Tab.EC PO SCH (08:11)
[2016-12-07] MEDS: Lutein/Minerals/Vit A,C & E Tab PO SCH (08:11)
[2016-12-07] MEDS: Calcium Carbonate/Vitamin D3 1250 MG-200 Unit Tab PO SCH (08:11)
[2016-12-07] MEDS: Atenolol 50 MG Tab PO SCH (08:12)
[2016-12-07] MEDS: Benazepril 10 MG Tab PO SCH (08:12)
[2016-12-07] MEDS: Enoxaparin 40 MG/0.4 ML Syringe SUBCUT SCH (08:12)
[2016-12-07] MEDS: Sodium Chloride 0.9% 10 ML Syringe FLUSH PRN ×4 (13:51→22:20)
--- NOTE | 2016-12-07 20:01 | PCM.PN ---
- General Info Date of Service: 12/07/16 Admission Dx/Problem (Free Text): infected joint Subjective Update: pt has no complaints. feeling well cont to state no pain in hip. no redness /tenderness over hip region. tolerating antibx well. Although had 5 loose stools today no n/v. Had appointment today with ID Functional Status: Reports: pain controlled - Review of Systems General: Denies: fever, weakness Pulmonary: Denies: shortness of breath Cardiovascular: Denies: chest pain Gastrointestinal: Denies: Abdominal pain Neurological: Denies: confusion, dizziness - Patient Data Vitals - most recent: Last Vital Signs Temp 36.8 C 12/07/16 15:49 Pulse 79 12/07/16 15:49 Resp 18 12/07/16 15:49 BP 140/63 12/07/16 15:49 Pulse Ox 98 12/07/16 15:49 Weight - most recent: 71.305 kg I&O - last 24 hours: Intake & Output 12/07/16 12/07/16 12/07/16 06:59 14:59 22:59 Intake Total 491 760 50 Balance 491 760 50 Lab Results last 24 hrs: Laboratory Results - last 24 hr 12/06/16 12/07/16 12/07/16 Range/Units 21:10 05:52 05:52 WBC 3.1 L (5.0-10.0) 10^3/uL RBC 3.32 L (4.2-5.4) 10^6/uL Hgb 9.6 L (12.0-16.0) g/dL Hct 30.2 L (37.0-47.0) % MCV 91.0 (80-100) fL MCH 28.9 (27.0-34.0) pg MCHC 31.8 L (33.0-35.0) g/dL Plt Count 165 (150-450) 10^3/uL Neut % (Auto) 61.2 (42.2-75.2) % Lymph % (Auto) 24.2 (20.5-50.1) % Karnes % (Auto) 12.4 H (2-8) % Eos % (Auto) 1.9 (1.0-3.0) % Baso % (Auto) 0.3 (0.0-1.0) % ESR 55 H (0-20) mm/hr Creatinine 0.6 (0.6-1.3) mg/dL Est Cr Clr Drug Dosing 75.15 mL/min Estimated GFR (MDRD) > 60 POC Glucose 127 H (83-110) mg/dl ALT 25 (10-60) IU/L C-Reactive Protein (0.0-1.3) mg/dL 12/07/16 12/07/16 12/07/16 Range/Units 05:52 07:39 11:39 WBC (5.0-10.0) 10^3/uL RBC (4.2-5.4) 10^6/uL Hgb (12.0-16.0) g/dL Hct (37.0-47.0) % MCV (80-100) fL MCH (27.0-34.0) pg MCHC (33.0-35.0) g/dL Plt Count (150-450) 10^3/uL Neut % (Auto) (42.2-75.2) % Lymph % (Auto) (20.5-50.1) % Karnes % (Auto) (2-8) % Eos % (Auto) (1.0-3.0) % Baso % (Auto) (0.0-1.0) % ESR (0-20) mm/hr Creatinine (0.6-1.3) mg/dL Est Cr Clr Drug Dosing mL/min Estimated GFR (MDRD) POC Glucose 140 H 120 H (83-110) mg/dl ALT (10-60) IU/L C-Reactive Protein < 0.5 (0.0-1.3) mg/dL 12/07/16 Range/Units 16:43 WBC (5.0-10.0) 10^3/uL RBC (4.2-5.4) 10^6/uL Hgb (12.0-16.0) g/dL Hct (37.0-47.0) % MCV (80-100) fL MCH (27.0-34.0) pg MCHC (33.0-35.0) g/dL Plt Count (150-450) 10^3/uL Neut % (Auto) (42.2-75.2) % Lymph % (Auto) (20.5-50.1) % Karnes % (Auto) (2-8) % Eos % (Auto) (1.0-3.0) % Baso % (Auto) (0.0-1.0) % ESR (0-20) mm/hr Creatinine (0.6-1.3) mg/dL Est Cr Clr Drug Dosing mL/min Estimated GFR (MDRD) POC Glucose 86 (83-110) mg/dl ALT (10-60) IU/L C-Reactive Protein (0.0-1.3) mg/dL Med Orders - Current: Current Medications Acetaminophen (Tylenol) 325 mg PO Q6H PRN PRN Reason: Pain (mild 1-3) Alendronate Sodium (Fosamax) 70 mg PO Q7D@0600 [facility] Last Admin: 12/02/16 05:50 Dose: 70 mg Amlodipine Besylate (Norvasc) 5 mg PO BEDTIME [facility] Last Admin: 12/06/16 21:42 Dose: 5 mg Aspirin (Halfprin) 81 mg PO DAILY [facility] Last Admin: 12/07/16 08:11 Dose: 81 mg Atenolol (Tenormin) 50 mg PO DAILY [facility] Last Admin: 12/07/16 08:12 Dose: 50 mg Benazepril HCl (Lotensin) 40 mg PO DAILY [facility] Last Admin: 12/07/16 08:12 Dose: 40 mg Brinzolamide (Azopt 1% Ophth Susp) 0 ml EYERT BID [facility] Last Admin: 12/07/16 08:10 Dose: 1 drop Calcium Carbonate (Calcium Carbonate/Vitamin D 1250 Mg-200 Unit) 1 tab PO DAILY [facility] Last Admin: 12/07/16 08:11 Dose: 1 tab Cyanocobalamin (Vitamin B12) 1,000 mcg IM Q30D [facility] Last Admin: 11/25/16 12:09 Dose: 1,000 mcg Enoxaparin Sodium (Lovenox) 40 mg SUBCUT DAILY [facility] Last Admin: 12/07/16 08:12 Dose: 40 mg Hydrochlorothiazide (Hydrochlorothiazide) 25 mg PO DAILY [facility] Last Admin: 12/07/16 08:11 Dose: 25 mg Cefazolin Sodium/Dextrose 1 gm (/ Premix) 50 mls @ 100 mls/hr IV Q8HR [facility] Last Admin: 12/07/16 13:51 Dose: 100 mls/hr Insulin Aspart (Novolog) 16 unit SUBCUT TIDMEALS [facility] Last Admin: 12/07/16 17:40 Dose: 16 units Insulin Aspart (Novolog) 0 unit SUBCUT TIDMEALS [facility] PRN Reason: Protocol Last Admin: 12/07/16 17:39 Dose: Not Given Insulin Detemir (Levemir) 18 unit SUBCUT BEDTIME [facility] Last Admin: 12/06/16 21:42 Dose: 18 units Latanoprost (Xalatan 0.005% Ophth Soln) 0 ml EYEBOTH BEDTIME [facility] Last Admin: 12/06/16 21:42 Dose: 1 drop Metformin HCl (Glucophage) 1,000 mg PO BIDMEALS [facility] Last Admin: 12/07/16 17:41 Dose: Not Given Multivitamins/Minerals (I-Rhonda) 1 each PO DAILY [facility] Last Admin: 12/07/16 08:11 Dose: 1 each Brimonidine Tartrate /Timolol [Combigan 0 .2%-0.5%] Eye Drop *Ptom 1 drop EYEBOTH BID [facility] Last Admin: 12/07/16 08:10 Dose: 1 drop Phenyleph/Shark Oil/Min Oil/Petrol (Preparation H Oint) 0 gm RECTAL QID PRN PRN Reason: Hemorrhoids Simvastatin (Zocor) 5 mg PO BEDTIME [facility] Last Admin: 12/06/16 21:42 Dose: 5 mg Sodium Chloride (Saline Flush) 10 ml FLUSH ASDIRECTED PRN PRN Reason: Keep Vein Open Last Admin: 12/07/16 13:51 Dose: 10 ml Discontinued Medications Cefazolin Sodium (Ancef) 1 gm IVPUSH Q8H [facility] Last Admin: 11/24/16 18:16 Dose: 1 gm Insulin Detemir (Levemir) 65 unit SUBCUT BEDTIME [facility] Last Admin: 11/25/16 21:32 Dose: Not Given Insulin Detemir (Levemir) 15 unit SUBCUT ONETIME ONE Stop: 11/25/16 21:36 Last Admin: 11/25/16 21:45 Dose: 15 units Insulin Detemir (Levemir) 0 unit SUBCUT BEDTIME [facility] Last Admin: 11/26/16 21:02 Dose: 15 units Latanoprost (Xalatan 0.005% Ophth Soln) 0 ml EYEBOTH BEDTIME [facility] Last Admin: 11/24/16 22:33 Dose: Not Given Latanoprost (Xalatan 0.005% Ophth Soln) 0 ml EYERT BEDTIME [facility] Latanoprost (Xalatan 0.005% Ophth Soln) 0 ml EYEBOTH BEDTIME [facility] Sodium Chloride (Saline Flush) 10 ml FLUSH QID [facility] Last Admin: 11/28/16 21:38 Dose: 10 ml - Exam Quality Assessment: No: supplemental oxygen General: alert, oriented Neck: supple Lungs: Clear to auscultation, Normal respiratory effort Cardiovascular: regular rate Abdomen: bowel sounds present, soft, no tenderness Extremities: no edema Skin: warm, dry Neurological: no new focal deficit Psy/Mental Status: alert, normal affect, normal mood - Problem List & Annotations (1) Anemia SNOMED Code(s): 760449286 Code(s): D64.9 - ANEMIA, UNSPECIFIED Status: Acute Current Visit: Yes (2) Septic joint SNOMED Code(s): 487756170 Code(s): M00.9 - PYOGENIC ARTHRITIS, UNSPECIFIED Status: Acute Current Visit: Yes Qualifiers: Septic arthritis location: hip Laterality: left - Problem List Review Problem List Initiated/Reviewed/Updated: Yes - My Orders Last 24 Hours: My Active Orders 12/09/16 05:15 CBC WITH AUTO DIFF [HEME] AM - Plan Plan:: 1. left septic arthritis -no pain. no fevers. tolerating antibx - had a few loose bowel movements today, will follow - continue Ancef - follow up with ortho tomorrow - dr Duke -f/u with April next week cont current regimen - repeat CBC in a few days to evaluate for leukopenia 2. anemia - stable - monitor for signs of bleeding 3. diabetes mellitus - cont insulin and metformin - glucochecks fasting and premeals - acceptable range 4. hypertension - cont hydrochlorothiazide, amlodipine, benazepril and atenolol 5. dyslipidemia - cont simvastatin 6. DVT prophylaxis with Lovenox 7. code status: DNI DNR
[2016-12-07] MEDS: amLODIPine 5 MG Tab PO SCH (20:28)
[2016-12-07] MEDS: Simvastatin 10 MG Tab PO SCH (20:30)
[2016-12-07] MEDS: Latanoprost 0.005% Ophth Soln 2.5 ML Bottle EYEBOTH SCH (20:39)
[2016-12-07] MEDS: Insulin Detemir 100 Units/ML 3 ML Pen SUBCUT SCH (20:45)
[2016-12-08] MEDS: Sodium Chloride 0.9% 10 ML Syringe FLUSH PRN ×4 (05:34→22:43)
[2016-12-08] MEDS: ceFAZolin 1 GM in Premix Bag 1 BAG IV SCH ×3 (05:38→22:11)
[2016-12-08] MEDS: Insulin Aspart 100 Units/ML 3 ML Pen SUBCUT SCH ×6 (08:22→17:28)
[2016-12-08] MEDS: TIMOLOL EYEBOTH SCH ×2 (08:25→20:49)
[2016-12-08] MEDS: EYE EYEBOTH SCH ×2 (08:25→20:49)
[2016-12-08] MEDS: BRIMONIDINE TARTRATE EYEBOTH SCH ×2 (08:25→20:49)
[2016-12-08] MEDS: metFORMIN 500 MG Tab PO SCH ×2 (08:33→17:27)
[2016-12-08] MEDS: Aspirin 81 MG Tab.EC PO SCH (08:33)
[2016-12-08] MEDS: Calcium Carbonate/Vitamin D3 1250 MG-200 Unit Tab PO SCH (08:33)
[2016-12-08] MEDS: Hydrochlorothiazide 25 MG Tab PO SCH (08:33)
[2016-12-08] MEDS: Benazepril 10 MG Tab PO SCH (08:34)
[2016-12-08] MEDS: Atenolol 50 MG Tab PO SCH (08:35)
[2016-12-08] MEDS: Lutein/Minerals/Vit A,C & E Tab PO SCH (08:35)
[2016-12-08] MEDS: Enoxaparin 40 MG/0.4 ML Syringe SUBCUT SCH (08:36)
[2016-12-08] MEDS: Simvastatin 10 MG Tab PO SCH (20:53)
[2016-12-08] MEDS: amLODIPine 5 MG Tab PO SCH (20:53)
[2016-12-08] MEDS: Insulin Detemir 100 Units/ML 3 ML Pen SUBCUT SCH (20:59)
[2016-12-08] MEDS: Latanoprost 0.005% Ophth Soln 2.5 ML Bottle EYEBOTH SCH (21:02)
[2016-12-09] MEDS: Sodium Chloride 0.9% 10 ML Syringe FLUSH PRN ×2 (05:17→05:51)
[2016-12-09] MEDS: ceFAZolin 1 GM in Premix Bag 1 BAG IV SCH ×3 (05:21→21:34)
[2016-12-09] MEDS: Insulin Aspart 100 Units/ML 3 ML Pen SUBCUT SCH ×6 (08:27→18:16)
[2016-12-09] MEDS: metFORMIN 500 MG Tab PO SCH ×2 (09:06→18:15)
[2016-12-09] MEDS: Calcium Carbonate/Vitamin D3 1250 MG-200 Unit Tab PO SCH (09:09)
[2016-12-09] MEDS: Lutein/Minerals/Vit A,C & E Tab PO SCH (09:09)
[2016-12-09] MEDS: Hydrochlorothiazide 25 MG Tab PO SCH (09:09)
[2016-12-09] MEDS: Aspirin 81 MG Tab.EC PO SCH (09:09)
[2016-12-09] MEDS: Benazepril 10 MG Tab PO SCH (09:09)
[2016-12-09] MEDS: Atenolol 50 MG Tab PO SCH (09:13)
[2016-12-09] MEDS: Enoxaparin 40 MG/0.4 ML Syringe SUBCUT SCH (09:14)
[2016-12-09] MEDS: BRIMONIDINE TARTRATE EYEBOTH SCH ×2 (09:16→21:43)
[2016-12-09] MEDS: TIMOLOL EYEBOTH SCH ×2 (09:16→21:43)
[2016-12-09] MEDS: EYE EYEBOTH SCH ×2 (09:16→21:43)
[2016-12-09] MEDS: Simvastatin 10 MG Tab PO SCH (21:39)
[2016-12-09] MEDS: amLODIPine 5 MG Tab PO SCH (21:39)
[2016-12-09] MEDS: Insulin Detemir 100 Units/ML 3 ML Pen SUBCUT SCH (21:41)
[2016-12-09] MEDS: Latanoprost 0.005% Ophth Soln 2.5 ML Bottle EYEBOTH SCH (21:43)
[2016-12-10] MEDS: Sodium Chloride 0.9% 10 ML Syringe FLUSH PRN ×2 (06:22→13:38)
[2016-12-10] MEDS: ceFAZolin 1 GM in Premix Bag 1 BAG IV SCH ×3 (06:22→21:43)
[2016-12-10] MEDS: Insulin Aspart 100 Units/ML 3 ML Pen SUBCUT SCH ×6 (08:32→17:48)
[2016-12-10] MEDS: metFORMIN 500 MG Tab PO SCH ×2 (08:42→17:46)
[2016-12-10] MEDS: Aspirin 81 MG Tab.EC PO SCH (08:43)
[2016-12-10] MEDS: Calcium Carbonate/Vitamin D3 1250 MG-200 Unit Tab PO SCH (08:43)
[2016-12-10] MEDS: Lutein/Minerals/Vit A,C & E Tab PO SCH (08:44)
[2016-12-10] MEDS: Enoxaparin 40 MG/0.4 ML Syringe SUBCUT SCH (08:45)
[2016-12-10] MEDS: EYE EYEBOTH SCH ×2 (08:47→21:47)
[2016-12-10] MEDS: TIMOLOL EYEBOTH SCH ×2 (08:47→21:47)
[2016-12-10] MEDS: BRIMONIDINE TARTRATE EYEBOTH SCH ×2 (08:47→21:47)
[2016-12-10] MEDS: Hydrochlorothiazide 25 MG Tab PO SCH (09:26)
[2016-12-10] MEDS: Atenolol 50 MG Tab PO SCH (09:26)
[2016-12-10] MEDS: Benazepril 10 MG Tab PO SCH (09:27)
[2016-12-10] MEDS: Latanoprost 0.005% Ophth Soln 2.5 ML Bottle EYEBOTH SCH (21:48)
[2016-12-10] MEDS: amLODIPine 5 MG Tab PO SCH (21:49)
[2016-12-10] MEDS: Insulin Detemir 100 Units/ML 3 ML Pen SUBCUT SCH (21:49)
[2016-12-10] MEDS: Simvastatin 10 MG Tab PO SCH (21:50)
[2016-12-11] MEDS: ceFAZolin 1 GM in Premix Bag 1 BAG IV SCH ×3 (05:51→21:21)
[2016-12-11] MEDS: Insulin Aspart 100 Units/ML 3 ML Pen SUBCUT SCH ×6 (08:06→17:07)
[2016-12-11] MEDS: Enoxaparin 40 MG/0.4 ML Syringe SUBCUT SCH (08:30)
[2016-12-11] MEDS: Atenolol 50 MG Tab PO SCH (08:31)
[2016-12-11] MEDS: Aspirin 81 MG Tab.EC PO SCH (08:31)
[2016-12-11] MEDS: Benazepril 10 MG Tab PO SCH (08:31)
[2016-12-11] MEDS: Lutein/Minerals/Vit A,C & E Tab PO SCH (08:31)
[2016-12-11] MEDS: Hydrochlorothiazide 25 MG Tab PO SCH (08:31)
[2016-12-11] MEDS: Calcium Carbonate/Vitamin D3 1250 MG-200 Unit Tab PO SCH (08:31)
[2016-12-11] MEDS: metFORMIN 500 MG Tab PO SCH ×2 (08:31→17:07)
[2016-12-11] MEDS: TIMOLOL EYEBOTH SCH ×2 (08:32→21:14)
[2016-12-11] MEDS: BRIMONIDINE TARTRATE EYEBOTH SCH ×2 (08:32→21:14)
[2016-12-11] MEDS: EYE EYEBOTH SCH ×2 (08:32→21:14)
[2016-12-11] MEDS: Insulin Detemir 100 Units/ML 3 ML Pen SUBCUT SCH (21:15)
[2016-12-11] MEDS: amLODIPine 5 MG Tab PO SCH (21:16)
[2016-12-11] MEDS: Simvastatin 10 MG Tab PO SCH (21:18)
[2016-12-11] MEDS: Latanoprost 0.005% Ophth Soln 2.5 ML Bottle EYEBOTH SCH (21:21)
[2016-12-12] MEDS: ceFAZolin 1 GM in Premix Bag 1 BAG IV SCH ×3 (06:14→21:14)
[2016-12-12] MEDS: Sodium Chloride 0.9% 10 ML Syringe FLUSH PRN ×3 (06:58→14:51)
[2016-12-12] MEDS: Insulin Aspart 100 Units/ML 3 ML Pen SUBCUT SCH ×6 (09:13→17:21)
[2016-12-12] MEDS: Lutein/Minerals/Vit A,C & E Tab PO SCH (09:17)
[2016-12-12] MEDS: Atenolol 50 MG Tab PO SCH (09:18)
[2016-12-12] MEDS: Aspirin 81 MG Tab.EC PO SCH (09:18)
[2016-12-12] MEDS: Hydrochlorothiazide 25 MG Tab PO SCH (09:18)
[2016-12-12] MEDS: Benazepril 10 MG Tab PO SCH (09:19)
[2016-12-12] MEDS: metFORMIN 500 MG Tab PO SCH ×2 (09:19→17:20)
[2016-12-12] MEDS: Calcium Carbonate/Vitamin D3 1250 MG-200 Unit Tab PO SCH (09:19)
[2016-12-12] MEDS: EYE EYEBOTH SCH ×2 (09:20→21:18)
[2016-12-12] MEDS: TIMOLOL EYEBOTH SCH ×2 (09:20→21:18)
[2016-12-12] MEDS: Enoxaparin 40 MG/0.4 ML Syringe SUBCUT SCH (09:20)
[2016-12-12] MEDS: BRIMONIDINE TARTRATE EYEBOTH SCH ×2 (09:20→21:18)
[2016-12-12] MEDS: Insulin Detemir 100 Units/ML 3 ML Pen SUBCUT SCH (21:14)
[2016-12-12] MEDS: amLODIPine 5 MG Tab PO SCH (21:15)
[2016-12-12] MEDS: Simvastatin 10 MG Tab PO SCH (21:16)
[2016-12-12] MEDS: Latanoprost 0.005% Ophth Soln 2.5 ML Bottle EYEBOTH SCH (21:17)
[2016-12-13] MEDS: ceFAZolin 1 GM in Premix Bag 1 BAG IV SCH ×3 (05:55→21:31)
[2016-12-13] MEDS: Insulin Aspart 100 Units/ML 3 ML Pen SUBCUT SCH ×6 (07:49→18:00)
[2016-12-13] MEDS: metFORMIN 500 MG Tab PO SCH ×2 (08:18→18:00)
[2016-12-13] MEDS: Sodium Chloride 0.9% 10 ML Syringe FLUSH PRN ×5 (08:20→21:59)
[2016-12-13] MEDS: TIMOLOL EYEBOTH SCH ×2 (09:10→21:12)
[2016-12-13] MEDS: Calcium Carbonate/Vitamin D3 1250 MG-200 Unit Tab PO SCH (09:10)
[2016-12-13] MEDS: BRIMONIDINE TARTRATE EYEBOTH SCH ×2 (09:10→21:12)
[2016-12-13] MEDS: EYE EYEBOTH SCH ×2 (09:10→21:12)
[2016-12-13] MEDS: Atenolol 50 MG Tab PO SCH (09:11)
[2016-12-13] MEDS: Hydrochlorothiazide 25 MG Tab PO SCH (09:11)
[2016-12-13] MEDS: Benazepril 10 MG Tab PO SCH (09:12)
[2016-12-13] MEDS: Lutein/Minerals/Vit A,C & E Tab PO SCH (09:12)
[2016-12-13] MEDS: Aspirin 81 MG Tab.EC PO SCH (09:12)
[2016-12-13] MEDS: Enoxaparin 40 MG/0.4 ML Syringe SUBCUT SCH (09:13)
[2016-12-13 11:10] LABS: CHLORIDE,CL 96 mmol/L (101-111); SODIUM,NA 132 mmol/L (135-145)
--- NOTE | 2016-12-13 12:16 | PN ---
DATE: 12/13/2016 SUBJECTIVE: Mrs. Dee Lazo Pending Sale To [facility] is a 76-year-old female with medical history significant for hypertension, type 2 diabetes mellitus, hyperlipidemia, osteoarthritis, admitted to the swing bed for continued IV antibiotic with Ancef with recent diagnosis of left hip septic arthritis and followed by Infectious Disease team and Orthopedic team. For the past 24 hours, the patient continues to have mild discomfort at the left hip side, 2/10 to 3/10 in intensity, aggravated on ambulation, relieved with rest and pain medication, nonradiating in nature, not associated with nausea or vomiting. Denies any chest pain. No shortness of breath. No abdominal pain. No nausea. No vomiting. No diarrhea. No fevers. No chills. REVIEW OF SYSTEMS: Cardiovascular, respiratory, gastrointestinal, neurology, constitutional were all evaluated. PHYSICAL EXAMINATION: Vital signs: Temperature of 98.4, pulse of 71, blood pressure 122/55, respiratory rate of 18, saturating at 98% on room air. General Appearance: The patient is well oriented to time, place, and person. Follows commands spontaneously. Cardiovascular: S1, S2 heard with normal intensity. No gallops. Respiratory: Clear to auscultation bilaterally. No wheeze. No crepitations. Abdomen: Soft. Bowel sounds positive. Nontender. No rigidity. Extremities: No edema in bilateral lower extremities. Neurology: No gross focal neurological deficits. MEDICATIONS: Reviewed. Continue with: 1. Tylenol 325 mg every 6 hours as needed for pain. 2. Fosamax 70 mg every weekly. 3. Norvasc 5 mg at bedtime. 4. Aspirin 81 mg daily. 5. Atenolol 50 mg daily. 6. Benazepril 40 mg daily. 7. Calcium carbonate with vitamin D one tablet daily. 8. Ancef 1 g q.8 hours. 9. Vitamin B12 of 1000 mcg IM every 30 days. 10.Lovenox 40 mg daily subcutaneously. 11.Hydrochlorothiazide 25 mg daily. 12.NovoLog 16 units 3 times a day with each meals. 13.Levemir 25 units at bedtime. 14.Metformin 1000 mg twice daily. 15.Zocor 5 mg at bedtime. LABORATORY DATA: Sodium 132, potassium 4.1, chloride 96, bicarb 26, BUN 24, creatinine 0.7, and glucose 179. ASSESSMENT: 1. Left hip septic arthritis, requiring IV antibiotics. 2. Hypertension. 3. Type 2 diabetes mellitus. 4. Hyperlipidemia. PLAN: 1. Left hip arthritis. The patient is admitted to the swing bed for continued IV antibiotic with Ancef for septic arthritis. The patient will be evaluated by Infectious Disease in a.m. She was also evaluated by Orthopedic services and no intervention planned at this time. Continue with Physical Therapy and Occupational Therapy. 2. Type 2 diabetes mellitus, uncontrolled. The patient was noted to have elevated blood sugars. We did change her insulin regimen after which her sugar seems to be in acceptable range. Closely follow with her blood sugars and have her on supplemental scale insulin as needed for additional coverage of her blood glucose. 3. Hypertension in accessible range. Continue with atenolol and benazepril, try to avoid any hypotensive episodes. 4. DVT prophylaxis. Continue with Lovenox for DVT prophylaxis. [facility] /[id number]
[2016-12-13] MEDS: Latanoprost 0.005% Ophth Soln 2.5 ML Bottle EYEBOTH SCH (21:05)
[2016-12-13] MEDS: Simvastatin 10 MG Tab PO SCH (21:07)
[2016-12-13] MEDS: amLODIPine 5 MG Tab PO SCH (21:09)
[2016-12-13] MEDS: Insulin Detemir 100 Units/ML 3 ML Pen SUBCUT SCH (21:17)
[2016-12-14] MEDS: ceFAZolin 1 GM in Premix Bag 1 BAG IV SCH ×3 (05:18→21:37)
[2016-12-14] MEDS: Sodium Chloride 0.9% 10 ML Syringe FLUSH PRN ×5 (05:18→21:40)
[2016-12-14 06:50] LABS: CHLORIDE,CL 100 mmol/L (101-111); SODIUM,NA 134 mmol/L (135-145)
[2016-12-14] MEDS: Insulin Aspart 100 Units/ML 3 ML Pen SUBCUT SCH ×6 (10:00→17:39)
[2016-12-14] MEDS: metFORMIN 500 MG Tab PO SCH ×2 (10:04→17:39)
[2016-12-14] MEDS: BRIMONIDINE TARTRATE EYEBOTH SCH ×2 (10:07→21:16)
[2016-12-14] MEDS: TIMOLOL EYEBOTH SCH ×2 (10:07→21:16)
[2016-12-14] MEDS: EYE EYEBOTH SCH ×2 (10:07→21:16)
[2016-12-14] MEDS: Calcium Carbonate/Vitamin D3 1250 MG-200 Unit Tab PO SCH (10:08)
[2016-12-14] MEDS: Lutein/Minerals/Vit A,C & E Tab PO SCH (10:08)
[2016-12-14] MEDS: Hydrochlorothiazide 25 MG Tab PO SCH (10:08)
[2016-12-14] MEDS: Aspirin 81 MG Tab.EC PO SCH (10:08)
[2016-12-14] MEDS: Enoxaparin 40 MG/0.4 ML Syringe SUBCUT SCH (10:09)
[2016-12-14] MEDS: Benazepril 10 MG Tab PO SCH (10:09)
[2016-12-14] MEDS: Atenolol 50 MG Tab PO SCH (10:10)
[2016-12-14] MEDS: Simvastatin 10 MG Tab PO SCH (21:18)
[2016-12-14] MEDS: amLODIPine 5 MG Tab PO SCH (21:19)
[2016-12-14] MEDS: Latanoprost 0.005% Ophth Soln 2.5 ML Bottle EYEBOTH SCH (21:24)
[2016-12-14] MEDS: Insulin Detemir 100 Units/ML 3 ML Pen SUBCUT SCH (21:26)
[2016-12-15] MEDS: ceFAZolin 1 GM in Premix Bag 1 BAG IV SCH ×3 (06:46→21:53)
[2016-12-15] MEDS: Insulin Aspart 100 Units/ML 3 ML Pen SUBCUT SCH ×6 (08:29→17:37)
[2016-12-15] MEDS: Calcium Carbonate/Vitamin D3 1250 MG-200 Unit Tab PO SCH (08:32)
[2016-12-15] MEDS: Lutein/Minerals/Vit A,C & E Tab PO SCH (08:32)
[2016-12-15] MEDS: Benazepril 10 MG Tab PO SCH (08:32)
[2016-12-15] MEDS: Enoxaparin 40 MG/0.4 ML Syringe SUBCUT SCH (08:32)
[2016-12-15] MEDS: metFORMIN 500 MG Tab PO SCH ×2 (08:35→17:38)
[2016-12-15] MEDS: Hydrochlorothiazide 25 MG Tab PO SCH (08:36)
[2016-12-15] MEDS: Atenolol 50 MG Tab PO SCH (08:36)
[2016-12-15] MEDS: Aspirin 81 MG Tab.EC PO SCH (08:36)
[2016-12-15] MEDS: BRIMONIDINE TARTRATE EYEBOTH SCH ×2 (08:40→21:49)
[2016-12-15] MEDS: EYE EYEBOTH SCH ×2 (08:40→21:49)
[2016-12-15] MEDS: TIMOLOL EYEBOTH SCH ×2 (08:40→21:49)
[2016-12-15] MEDS: Insulin Detemir 100 Units/ML 3 ML Pen SUBCUT SCH (21:48)
[2016-12-15] MEDS: Simvastatin 10 MG Tab PO SCH (21:51)
[2016-12-15] MEDS: Latanoprost 0.005% Ophth Soln 2.5 ML Bottle EYEBOTH SCH (21:51)
[2016-12-15] MEDS: amLODIPine 5 MG Tab PO SCH (21:52)
[2016-12-16] MEDS: ceFAZolin 1 GM in Premix Bag 1 BAG IV SCH ×3 (05:58→21:11)
[2016-12-16] MEDS: Insulin Aspart 100 Units/ML 3 ML Pen SUBCUT SCH ×6 (08:34→17:38)
[2016-12-16] MEDS: Enoxaparin 40 MG/0.4 ML Syringe SUBCUT SCH (08:36)
[2016-12-16] MEDS: Benazepril 10 MG Tab PO SCH (08:41)
[2016-12-16] MEDS: Aspirin 81 MG Tab.EC PO SCH (08:44)
[2016-12-16] MEDS: metFORMIN 500 MG Tab PO SCH ×2 (08:44→17:39)
[2016-12-16] MEDS: Lutein/Minerals/Vit A,C & E Tab PO SCH (08:44)
[2016-12-16] MEDS: Atenolol 50 MG Tab PO SCH (08:45)
[2016-12-16] MEDS: Calcium Carbonate/Vitamin D3 1250 MG-200 Unit Tab PO SCH (08:45)
[2016-12-16] MEDS: Hydrochlorothiazide 25 MG Tab PO SCH (08:45)
[2016-12-16] MEDS: TIMOLOL EYEBOTH SCH ×2 (08:47→21:16)
[2016-12-16] MEDS: BRIMONIDINE TARTRATE EYEBOTH SCH ×2 (08:47→21:16)
[2016-12-16] MEDS: EYE EYEBOTH SCH ×2 (08:47→21:16)
[2016-12-16] MEDS: Insulin Detemir 100 Units/ML 3 ML Pen SUBCUT SCH (21:09)
[2016-12-16] MEDS: amLODIPine 5 MG Tab PO SCH (21:12)
[2016-12-16] MEDS: Latanoprost 0.005% Ophth Soln 2.5 ML Bottle EYEBOTH SCH (21:16)
[2016-12-16] MEDS: Simvastatin 10 MG Tab PO SCH (21:17)
[2016-12-16] MEDS: Sodium Chloride 0.9% 10 ML Syringe FLUSH PRN (21:57)
[2016-12-17] MEDS: ceFAZolin 1 GM in Premix Bag 1 BAG IV SCH ×3 (06:18→22:23)
[2016-12-17] MEDS: Insulin Aspart 100 Units/ML 3 ML Pen SUBCUT SCH ×6 (07:59→17:19)
[2016-12-17] MEDS: Aspirin 81 MG Tab.EC PO SCH (08:31)
[2016-12-17] MEDS: Calcium Carbonate/Vitamin D3 1250 MG-200 Unit Tab PO SCH (08:31)
[2016-12-17] MEDS: Hydrochlorothiazide 25 MG Tab PO SCH (08:31)
[2016-12-17] MEDS: Lutein/Minerals/Vit A,C & E Tab PO SCH (08:31)
[2016-12-17] MEDS: metFORMIN 500 MG Tab PO SCH ×2 (08:32→17:20)
[2016-12-17] MEDS: Atenolol 50 MG Tab PO SCH (08:32)
[2016-12-17] MEDS: Benazepril 10 MG Tab PO SCH (08:32)
[2016-12-17] MEDS: Enoxaparin 40 MG/0.4 ML Syringe SUBCUT SCH (08:33)
[2016-12-17] MEDS: TIMOLOL EYEBOTH SCH ×2 (08:36→22:15)
[2016-12-17] MEDS: EYE EYEBOTH SCH ×2 (08:36→22:15)
[2016-12-17] MEDS: BRIMONIDINE TARTRATE EYEBOTH SCH ×2 (08:36→22:15)
--- NOTE | 2016-12-17 10:04 | PCM.PN ---
- General Info Date of Service: 12/17/16 Subjective Update: pt doing well. states there is now some arthritis discomfort back in her hip as the "steroids shot is wearing off". pain controlled. no other complaints Functional Status: Reports: pain controlled, tolerating diet, ambulating, urinating - Review of Systems General: Reports: No Symptoms HEENT: Reports: no symptoms Pulmonary: Reports: no symptoms Cardiovascular: Reports: No Symptoms Gastrointestinal: Reports: No symptoms Musculoskeletal: Reports: other (hip pain ) - Patient Data Vitals - most recent: Last Vital Signs Temp 35.9 C 12/17/16 07:00 Pulse 71 12/17/16 08:32 Resp 20 12/17/16 07:00 BP 147/53 H 12/17/16 08:32 Pulse Ox 99 12/17/16 07:00 Weight - most recent: 73.301 kg I&O - last 24 hours: Intake & Output 12/16/16 12/17/16 12/17/16 22:59 06:59 14:59 Intake Total 384 Balance 384 Lab Results last 24 hrs: Laboratory Results - last 24 hr 12/16/16 12/16/16 12/16/16 Range/Units 10:45 16:56 20:53 POC Glucose 227 H 98 171 H (83-110) mg/dl 12/17/16 Range/Units 07:47 POC Glucose 102 (83-110) mg/dl Med Orders - Current: Current Medications Acetaminophen (Tylenol) 325 mg PO Q6H PRN PRN Reason: Pain (mild 1-3) Alendronate Sodium (Fosamax) 70 mg PO Q7D@0600 [facility] Last Admin: 12/16/16 05:58 Dose: 70 mg Amlodipine Besylate (Norvasc) 5 mg PO BEDTIME [facility] Last Admin: 12/16/16 21:12 Dose: 5 mg Aspirin (Halfprin) 81 mg PO DAILY [facility] Last Admin: 12/17/16 08:31 Dose: 81 mg Atenolol (Tenormin) 50 mg PO DAILY [facility] Last Admin: 12/17/16 08:32 Dose: 50 mg Benazepril HCl (Lotensin) 40 mg PO DAILY [facility] Last Admin: 12/17/16 08:32 Dose: 40 mg Brinzolamide (Azopt 1% Ophth Susp) 0 ml EYERT BID [facility] Last Admin: 12/17/16 08:36 Dose: 1 drop Calcium Carbonate (Calcium Carbonate/Vitamin D 1250 Mg-200 Unit) 1 tab PO DAILY [facility] Last Admin: 12/17/16 08:31 Dose: 1 tab Cyanocobalamin (Vitamin B12) 1,000 mcg IM Q30D [facility] Last Admin: 11/25/16 12:09 Dose: 1,000 mcg Enoxaparin Sodium (Lovenox) 40 mg SUBCUT DAILY [facility] Last Admin: 12/17/16 08:33 Dose: 40 mg Hydrochlorothiazide (Hydrochlorothiazide) 25 mg PO DAILY [facility] Last Admin: 12/17/16 08:31 Dose: 25 mg Cefazolin Sodium/Dextrose 1 gm (/ Premix) 50 mls @ 100 mls/hr IV Q8HR [facility] Last Admin: 12/17/16 06:18 Dose: 100 mls/hr Insulin Aspart (Novolog) 16 unit SUBCUT TIDMEALS [facility] Last Admin: 12/17/16 08:29 Dose: 16 units Insulin Aspart (Novolog) 0 unit SUBCUT TIDMEALS [facility] PRN Reason: Protocol Last Admin: 12/17/16 07:59 Dose: Not Given Insulin Detemir (Levemir) 25 unit SUBCUT BEDTIME [facility] Last Admin: 12/16/16 21:09 Dose: 25 unit Latanoprost (Xalatan 0.005% Ophth Soln) 0 ml EYEBOTH BEDTIME [facility] Last Admin: 12/16/16 21:16 Dose: 1 drop Metformin HCl (Glucophage) 1,000 mg PO BIDMEALS [facility] Last Admin: 12/17/16 08:32 Dose: 1,000 mg Multivitamins/Minerals (I-Rhonda) 1 each PO DAILY [facility] Last Admin: 12/17/16 08:31 Dose: 1 each Brimonidine Tartrate /Timolol [Combigan 0 .2%-0.5%] Eye Drop *Ptom 1 drop EYEBOTH BID [facility] Last Admin: 12/17/16 08:36 Dose: 1 drop Phenyleph/Shark Oil/Min Oil/Petrol (Preparation H Oint) 0 gm RECTAL QID PRN PRN Reason: Hemorrhoids Simvastatin (Zocor) 5 mg PO BEDTIME [facility] Last Admin: 12/16/16 21:17 Dose: 5 mg Sodium Chloride (Saline Flush) 10 ml FLUSH ASDIRECTED PRN PRN Reason: Keep Vein Open Last Admin: 12/16/16 21:57 Dose: 10 ml Discontinued Medications Cefazolin Sodium (Ancef) 1 gm IVPUSH Q8H [facility] Last Admin: 11/24/16 18:16 Dose: 1 gm Insulin Detemir (Levemir) 65 unit SUBCUT BEDTIME [facility] Last Admin: 11/25/16 21:32 Dose: Not Given Insulin Detemir (Levemir) 15 unit SUBCUT ONETIME ONE Stop: 11/25/16 21:36 Last Admin: 11/25/16 21:45 Dose: 15 units Insulin Detemir (Levemir) 0 unit SUBCUT BEDTIME [facility] Last Admin: 11/26/16 21:02 Dose: 15 units Insulin Detemir (Levemir) 18 unit SUBCUT BEDTIME [facility] Last Admin: 12/10/16 21:49 Dose: 18 units Latanoprost (Xalatan 0.005% Ophth Soln) 0 ml EYEBOTH BEDTIME [facility] Last Admin: 11/24/16 22:33 Dose: Not Given Latanoprost (Xalatan 0.005% Ophth Soln) 0 ml EYERT BEDTIME [facility] Latanoprost (Xalatan 0.005% Ophth Soln) 0 ml EYEBOTH BEDTIME [facility] Sodium Chloride (Saline Flush) 10 ml FLUSH QID [facility] Last Admin: 11/28/16 21:38 Dose: 10 ml - Exam General: alert, oriented, cooperative, no acute distress Lungs: Clear to auscultation, Normal respiratory effort Cardiovascular: Regular Rate, Regular Rhythm Abdomen: bowel sounds present, soft Extremities: no edema - Problem List & Annotations (1) Septic joint SNOMED Code(s): 333651340 Code(s): M00.9 - PYOGENIC ARTHRITIS, UNSPECIFIED Status: Acute Current Visit: Yes Qualifiers: Septic arthritis location: hip Laterality: left - Problem List Review Problem List Initiated/Reviewed/Updated: Yes - My Orders Last 24 Hours: My Active Orders 12/21/16 06:00 ALANINE AMINOTRANSFERASE,ALT [CHEM] Routine CBC WITH AUTO DIFF [HEME] Routine CREATININE W/GFR [CHEM] Routine CRP [C-REACTIVE PROTEIN] [CHEM] Routine SEDIMENTATION RATE MANUAL [HEME] Routine - Plan Plan:: 1. left septic arthritis -no pain. no fevers. tolerating antibx - continue Ancef - follow up with ortho next week - dr Duke; missed appointment previously due to weather -f/u with April next week - 12/21/16 cont current regimen - labs ordered 2. anemia - stable - monitor for signs of bleeding 3. diabetes mellitus - cont insulin and metformin - glucochecks fasting and premeals - acceptable range 4. hypertension - cont hydrochlorothiazide, amlodipine, benazepril and atenolol 5. dyslipidemia - cont simvastatin 6. DVT prophylaxis with Lovenox 7. code status: DNI DNR
[2016-12-17] MEDS: Sodium Chloride 0.9% 10 ML Syringe FLUSH PRN (13:51)
[2016-12-17] MEDS: Latanoprost 0.005% Ophth Soln 2.5 ML Bottle EYEBOTH SCH (22:14)
[2016-12-17] MEDS: Simvastatin 10 MG Tab PO SCH (22:16)
[2016-12-17] MEDS: amLODIPine 5 MG Tab PO SCH (22:17)
[2016-12-17] MEDS: Insulin Detemir 100 Units/ML 3 ML Pen SUBCUT SCH (22:21)
[2016-12-18] MEDS: ceFAZolin 1 GM in Premix Bag 1 BAG IV SCH ×3 (06:10→22:14)
[2016-12-18] MEDS: Calcium Carbonate/Vitamin D3 1250 MG-200 Unit Tab PO SCH (09:01)
[2016-12-18] MEDS: Hydrochlorothiazide 25 MG Tab PO SCH (09:01)
[2016-12-18] MEDS: Benazepril 10 MG Tab PO SCH (09:01)
[2016-12-18] MEDS: metFORMIN 500 MG Tab PO SCH ×2 (09:01→17:30)
[2016-12-18] MEDS: Aspirin 81 MG Tab.EC PO SCH (09:01)
[2016-12-18] MEDS: Lutein/Minerals/Vit A,C & E Tab PO SCH (09:01)
[2016-12-18] MEDS: Atenolol 50 MG Tab PO SCH (09:01)
[2016-12-18] MEDS: Enoxaparin 40 MG/0.4 ML Syringe SUBCUT SCH (09:02)
[2016-12-18] MEDS: TIMOLOL EYEBOTH SCH ×2 (09:02→20:51)
[2016-12-18] MEDS: BRIMONIDINE TARTRATE EYEBOTH SCH ×2 (09:02→20:51)
[2016-12-18] MEDS: EYE EYEBOTH SCH ×2 (09:02→20:51)
[2016-12-18] MEDS: Insulin Aspart 100 Units/ML 3 ML Pen SUBCUT SCH ×6 (09:05→17:31)
[2016-12-18] MEDS: Latanoprost 0.005% Ophth Soln 2.5 ML Bottle EYEBOTH SCH (20:55)
[2016-12-18] MEDS: Simvastatin 10 MG Tab PO SCH (20:58)
[2016-12-18] MEDS: amLODIPine 5 MG Tab PO SCH (20:58)
[2016-12-18] MEDS: Insulin Detemir 100 Units/ML 3 ML Pen SUBCUT SCH (21:02)
[2016-12-18] MEDS: Sodium Chloride 0.9% 10 ML Syringe FLUSH PRN (22:14)
[2016-12-19] MEDS: Sodium Chloride 0.9% 10 ML Syringe FLUSH PRN ×4 (05:44→22:01)
[2016-12-19] MEDS: ceFAZolin 1 GM in Premix Bag 1 BAG IV SCH ×3 (05:44→21:29)
[2016-12-19] MEDS: Insulin Aspart 100 Units/ML 3 ML Pen SUBCUT SCH ×6 (08:08→17:17)
[2016-12-19] MEDS: Enoxaparin 40 MG/0.4 ML Syringe SUBCUT SCH (08:23)
[2016-12-19] MEDS: metFORMIN 500 MG Tab PO SCH ×2 (08:24→17:16)
[2016-12-19] MEDS: Lutein/Minerals/Vit A,C & E Tab PO SCH (08:24)
[2016-12-19] MEDS: Aspirin 81 MG Tab.EC PO SCH (08:24)
[2016-12-19] MEDS: Calcium Carbonate/Vitamin D3 1250 MG-200 Unit Tab PO SCH (08:24)
[2016-12-19] MEDS: Atenolol 50 MG Tab PO SCH (08:25)
[2016-12-19] MEDS: Benazepril 10 MG Tab PO SCH (08:25)
[2016-12-19] MEDS: Hydrochlorothiazide 25 MG Tab PO SCH (08:25)
[2016-12-19] MEDS: EYE EYEBOTH SCH ×2 (08:26→21:05)
[2016-12-19] MEDS: BRIMONIDINE TARTRATE EYEBOTH SCH ×2 (08:26→21:05)
[2016-12-19] MEDS: TIMOLOL EYEBOTH SCH ×2 (08:26→21:05)
[2016-12-19] MEDS: amLODIPine 5 MG Tab PO SCH (20:58)
[2016-12-19] MEDS: Simvastatin 10 MG Tab PO SCH (20:59)
[2016-12-19] MEDS: Insulin Detemir 100 Units/ML 3 ML Pen SUBCUT SCH (21:00)
[2016-12-19] MEDS: Latanoprost 0.005% Ophth Soln 2.5 ML Bottle EYEBOTH SCH (21:05)
[2016-12-20] MEDS: ceFAZolin 1 GM in Premix Bag 1 BAG IV SCH ×3 (05:50→21:25)
[2016-12-20] MEDS: Sodium Chloride 0.9% 10 ML Syringe FLUSH PRN ×2 (05:50→21:25)
[2016-12-20] MEDS: Lutein/Minerals/Vit A,C & E Tab PO SCH (08:59)
[2016-12-20] MEDS: metFORMIN 500 MG Tab PO SCH ×2 (09:00→17:29)
[2016-12-20] MEDS: Calcium Carbonate/Vitamin D3 1250 MG-200 Unit Tab PO SCH (09:00)
[2016-12-20] MEDS: Atenolol 50 MG Tab PO SCH (09:01)
[2016-12-20] MEDS: Aspirin 81 MG Tab.EC PO SCH (09:01)
[2016-12-20] MEDS: Hydrochlorothiazide 25 MG Tab PO SCH (09:01)
[2016-12-20] MEDS: Benazepril 10 MG Tab PO SCH (09:02)
[2016-12-20] MEDS: Enoxaparin 40 MG/0.4 ML Syringe SUBCUT SCH (09:04)
[2016-12-20] MEDS: Insulin Aspart 100 Units/ML 3 ML Pen SUBCUT SCH ×6 (09:04→17:35)
[2016-12-20] MEDS: TIMOLOL EYEBOTH SCH ×2 (09:07→21:17)
[2016-12-20] MEDS: BRIMONIDINE TARTRATE EYEBOTH SCH ×2 (09:07→21:17)
[2016-12-20] MEDS: EYE EYEBOTH SCH ×2 (09:07→21:17)
[2016-12-20] MEDS: Insulin Detemir 100 Units/ML 3 ML Pen SUBCUT SCH (21:14)
[2016-12-20] MEDS: Latanoprost 0.005% Ophth Soln 2.5 ML Bottle EYEBOTH SCH (21:16)
[2016-12-20] MEDS: Simvastatin 10 MG Tab PO SCH (21:18)
[2016-12-20] MEDS: amLODIPine 5 MG Tab PO SCH (21:18)
[2016-12-21] MEDS: ceFAZolin 1 GM in Premix Bag 1 BAG IV SCH ×3 (05:47→21:53)
[2016-12-21] MEDS: Insulin Aspart 100 Units/ML 3 ML Pen SUBCUT SCH ×6 (08:11→17:25)
[2016-12-21] MEDS: EYE EYEBOTH SCH ×2 (08:13→20:50)
[2016-12-21] MEDS: TIMOLOL EYEBOTH SCH ×2 (08:13→20:50)
[2016-12-21] MEDS: BRIMONIDINE TARTRATE EYEBOTH SCH ×2 (08:13→20:50)
[2016-12-21] MEDS: metFORMIN 500 MG Tab PO SCH ×2 (08:14→17:21)
[2016-12-21] MEDS: Lutein/Minerals/Vit A,C & E Tab PO SCH (08:14)
[2016-12-21] MEDS: Enoxaparin 40 MG/0.4 ML Syringe SUBCUT SCH (08:15)
[2016-12-21] MEDS: Calcium Carbonate/Vitamin D3 1250 MG-200 Unit Tab PO SCH (08:15)
[2016-12-21] MEDS: Hydrochlorothiazide 25 MG Tab PO SCH (08:16)
[2016-12-21] MEDS: Aspirin 81 MG Tab.EC PO SCH (08:16)
[2016-12-21] MEDS: Atenolol 50 MG Tab PO SCH (08:16)
[2016-12-21] MEDS: Benazepril 10 MG Tab PO SCH (08:17)
--- NOTE | 2016-12-21 12:17 | CR ---
CLINICAL HISTORY: 76-year-old female with clinical history "septic arthritis". INTERPRETATION: Three views left hip document intramedullary chari and nail transfixing old healed int ratrochanteric fracture proximal left femur. Arteriovascular calcifications soft tissues and cluster of surgical clips left hemipelvis. Generalized osteopenia but symmetric spacing normal-appearing left hip and ipsilateral SI joints, i. e., no arthritic degenerative or destructive changes. No sign of pathologic skeletal lesion, acute left hip fracture or dislocation.
[2016-12-21] MEDS: Sodium Chloride 0.9% 10 ML Syringe FLUSH PRN ×3 (13:08→22:23)
[2016-12-21] MEDS: amLODIPine 5 MG Tab PO SCH (20:47)
[2016-12-21] MEDS: Simvastatin 10 MG Tab PO SCH (20:48)
[2016-12-21] MEDS: Latanoprost 0.005% Ophth Soln 2.5 ML Bottle EYEBOTH SCH (20:51)
[2016-12-21] MEDS: Insulin Detemir 100 Units/ML 3 ML Pen SUBCUT SCH (21:10)
[2016-12-22] MEDS: Sodium Chloride 0.9% 10 ML Syringe FLUSH PRN ×3 (05:41→13:24)
[2016-12-22] MEDS: ceFAZolin 1 GM in Premix Bag 1 BAG IV SCH ×3 (05:42→21:15)
[2016-12-22] MEDS: Insulin Aspart 100 Units/ML 3 ML Pen SUBCUT SCH ×6 (09:24→17:29)
[2016-12-22] MEDS: Enoxaparin 40 MG/0.4 ML Syringe SUBCUT SCH (09:26)
[2016-12-22] MEDS: Lutein/Minerals/Vit A,C & E Tab PO SCH (09:28)
[2016-12-22] MEDS: Calcium Carbonate/Vitamin D3 1250 MG-200 Unit Tab PO SCH (09:28)
[2016-12-22] MEDS: metFORMIN 500 MG Tab PO SCH ×2 (09:28→17:27)
[2016-12-22] MEDS: Atenolol 50 MG Tab PO SCH (09:33)
[2016-12-22] MEDS: Benazepril 10 MG Tab PO SCH (09:33)
[2016-12-22] MEDS: Aspirin 81 MG Tab.EC PO SCH (09:33)
[2016-12-22] MEDS: Hydrochlorothiazide 25 MG Tab PO SCH (09:34)
[2016-12-22] MEDS: EYE EYEBOTH SCH ×2 (09:34→21:16)
[2016-12-22] MEDS: BRIMONIDINE TARTRATE EYEBOTH SCH ×2 (09:34→21:16)
[2016-12-22] MEDS: TIMOLOL EYEBOTH SCH ×2 (09:34→21:16)
[2016-12-22] MEDS: Simvastatin 10 MG Tab PO SCH (21:14)
[2016-12-22] MEDS: amLODIPine 5 MG Tab PO SCH (21:14)
[2016-12-22] MEDS: Latanoprost 0.005% Ophth Soln 2.5 ML Bottle EYEBOTH SCH (21:15)
[2016-12-22] MEDS: Insulin Detemir 100 Units/ML 3 ML Pen SUBCUT SCH (21:16)
[2016-12-23] MEDS: ceFAZolin 1 GM in Premix Bag 1 BAG IV SCH ×5 (04:05→21:24)
[2016-12-23] MEDS: Insulin Aspart 100 Units/ML 3 ML Pen SUBCUT SCH ×6 (08:20→17:09)
[2016-12-23] MEDS: Benazepril 10 MG Tab PO SCH (08:26)
[2016-12-23] MEDS: Enoxaparin 40 MG/0.4 ML Syringe SUBCUT SCH (08:26)
[2016-12-23] MEDS: Atenolol 50 MG Tab PO SCH (08:28)
[2016-12-23] MEDS: Calcium Carbonate/Vitamin D3 1250 MG-200 Unit Tab PO SCH (08:28)
[2016-12-23] MEDS: metFORMIN 500 MG Tab PO SCH ×2 (08:29→17:08)
[2016-12-23] MEDS: Aspirin 81 MG Tab.EC PO SCH (08:29)
[2016-12-23] MEDS: Hydrochlorothiazide 25 MG Tab PO SCH (08:29)
[2016-12-23] MEDS: Lutein/Minerals/Vit A,C & E Tab PO SCH (08:29)
[2016-12-23] MEDS: BRIMONIDINE TARTRATE EYEBOTH SCH ×2 (08:38→22:04)
[2016-12-23] MEDS: EYE EYEBOTH SCH ×2 (08:38→22:04)
[2016-12-23] MEDS: TIMOLOL EYEBOTH SCH ×2 (08:38→22:04)
[2016-12-23] MEDS ORDERED: Cyanocobalamin (Vitamin B12) 1,000 MCG/ML SDV IM SCH (09:00)
[2016-12-23] MEDS ORDERED: ceFAZolin 1 GM in Premix Bag 1 BAG IV ONE (10:00)
[2016-12-23] MEDS: Simvastatin 10 MG Tab PO SCH (21:08)
[2016-12-23] MEDS: amLODIPine 5 MG Tab PO SCH (21:09)
[2016-12-23] MEDS: Insulin Detemir 100 Units/ML 3 ML Pen SUBCUT SCH (21:10)
[2016-12-23] MEDS: Latanoprost 0.005% Ophth Soln 2.5 ML Bottle EYEBOTH SCH (21:14)
[2016-12-23] MEDS: Sodium Chloride 0.9% 10 ML Syringe FLUSH PRN ×2 (21:23→22:00)
[2016-12-24] MEDS: Sodium Chloride 0.9% 10 ML Syringe FLUSH PRN ×4 (05:30→13:54)
[2016-12-24] MEDS: ceFAZolin 1 GM in Premix Bag 1 BAG IV SCH ×3 (05:31→21:33)
[2016-12-24] MEDS: Acetaminophen 325 MG Tab PO PRN ×2 (05:45→20:22)
[2016-12-24] MEDS: Insulin Aspart 100 Units/ML 3 ML Pen SUBCUT SCH ×6 (08:00→17:03)
[2016-12-24] MEDS: TIMOLOL EYEBOTH SCH ×2 (09:28→20:19)
[2016-12-24] MEDS: EYE EYEBOTH SCH ×2 (09:28→20:19)
[2016-12-24] MEDS: BRIMONIDINE TARTRATE EYEBOTH SCH ×2 (09:28→20:19)
[2016-12-24] MEDS: metFORMIN 500 MG Tab PO SCH ×2 (09:30→17:02)
[2016-12-24] MEDS: Calcium Carbonate/Vitamin D3 1250 MG-200 Unit Tab PO SCH (09:31)
[2016-12-24] MEDS: Benazepril 10 MG Tab PO SCH (09:32)
[2016-12-24] MEDS: Atenolol 50 MG Tab PO SCH (09:33)
[2016-12-24] MEDS: Aspirin 81 MG Tab.EC PO SCH (09:34)
[2016-12-24] MEDS: Hydrochlorothiazide 25 MG Tab PO SCH (09:34)
[2016-12-24] MEDS: Lutein/Minerals/Vit A,C & E Tab PO SCH (09:35)
[2016-12-24] MEDS: Enoxaparin 40 MG/0.4 ML Syringe SUBCUT SCH (09:36)
[2016-12-24] MEDS: amLODIPine 5 MG Tab PO SCH (20:20)
[2016-12-24] MEDS: Simvastatin 10 MG Tab PO SCH (20:21)
[2016-12-24] MEDS: Latanoprost 0.005% Ophth Soln 2.5 ML Bottle EYEBOTH SCH (20:23)
[2016-12-24] MEDS: Insulin Detemir 100 Units/ML 3 ML Pen SUBCUT SCH (21:13)
[2016-12-25] MEDS: ceFAZolin 1 GM in Premix Bag 1 BAG IV SCH ×3 (05:46→22:13)
[2016-12-25] MEDS: Insulin Aspart 100 Units/ML 3 ML Pen SUBCUT SCH ×6 (08:29→17:26)
[2016-12-25] MEDS: Benazepril 10 MG Tab PO SCH (09:01)
[2016-12-25] MEDS: metFORMIN 500 MG Tab PO SCH ×2 (09:01→17:05)
[2016-12-25] MEDS: Aspirin 81 MG Tab.EC PO SCH (09:01)
[2016-12-25] MEDS: Calcium Carbonate/Vitamin D3 1250 MG-200 Unit Tab PO SCH (09:03)
[2016-12-25] MEDS: Atenolol 50 MG Tab PO SCH (09:03)
[2016-12-25] MEDS: Hydrochlorothiazide 25 MG Tab PO SCH (09:04)
[2016-12-25] MEDS: Lutein/Minerals/Vit A,C & E Tab PO SCH (09:04)
[2016-12-25] MEDS: BRIMONIDINE TARTRATE EYEBOTH SCH ×2 (09:06→21:31)
[2016-12-25] MEDS: TIMOLOL EYEBOTH SCH ×2 (09:06→21:31)
[2016-12-25] MEDS: EYE EYEBOTH SCH ×2 (09:06→21:31)
[2016-12-25] MEDS: Enoxaparin 40 MG/0.4 ML Syringe SUBCUT SCH (09:07)
[2016-12-25] MEDS: Codeine/guaiFENesin 100-10 MG/5 ML Syrup 5 ML Cup PO PRN (14:11)
[2016-12-25] MEDS: Sodium Chloride 0.9% 10 ML Syringe FLUSH PRN ×2 (14:12→22:10)
[2016-12-25] MEDS: Latanoprost 0.005% Ophth Soln 2.5 ML Bottle EYEBOTH SCH (21:11)
[2016-12-25] MEDS: Insulin Detemir 100 Units/ML 3 ML Pen SUBCUT SCH (21:17)
[2016-12-25] MEDS: amLODIPine 5 MG Tab PO SCH (21:27)
[2016-12-25] MEDS: Simvastatin 10 MG Tab PO SCH (21:28)
[2016-12-26] MEDS: Sodium Chloride 0.9% 10 ML Syringe FLUSH PRN ×6 (06:20→22:32)
[2016-12-26] MEDS: ceFAZolin 1 GM in Premix Bag 1 BAG IV SCH ×3 (06:21→22:02)
[2016-12-26] MEDS: Insulin Aspart 100 Units/ML 3 ML Pen SUBCUT SCH ×6 (08:18→17:22)
[2016-12-26] MEDS: metFORMIN 500 MG Tab PO SCH ×2 (08:23→17:21)
[2016-12-26] MEDS: Benazepril 10 MG Tab PO SCH (10:07)
[2016-12-26] MEDS: Calcium Carbonate/Vitamin D3 1250 MG-200 Unit Tab PO SCH (10:08)
[2016-12-26] MEDS: Atenolol 50 MG Tab PO SCH (10:08)
[2016-12-26] MEDS: Lutein/Minerals/Vit A,C & E Tab PO SCH (10:08)
[2016-12-26] MEDS: Hydrochlorothiazide 25 MG Tab PO SCH (10:09)
[2016-12-26] MEDS: Aspirin 81 MG Tab.EC PO SCH (10:09)
[2016-12-26] MEDS: Enoxaparin 40 MG/0.4 ML Syringe SUBCUT SCH (10:10)
[2016-12-26] MEDS: EYE EYEBOTH SCH ×2 (10:13→20:48)
[2016-12-26] MEDS: TIMOLOL EYEBOTH SCH ×2 (10:13→20:48)
[2016-12-26] MEDS: BRIMONIDINE TARTRATE EYEBOTH SCH ×2 (10:13→20:48)
[2016-12-26] MEDS: Codeine/guaiFENesin 100-10 MG/5 ML Syrup 5 ML Cup PO PRN (10:26)
[2016-12-26] MEDS: Insulin Detemir 100 Units/ML 3 ML Pen SUBCUT SCH (20:50)
[2016-12-26] MEDS: amLODIPine 5 MG Tab PO SCH (20:58)
[2016-12-26] MEDS: Simvastatin 10 MG Tab PO SCH (21:03)
[2016-12-26] MEDS: Latanoprost 0.005% Ophth Soln 2.5 ML Bottle EYEBOTH SCH (21:05)
[2016-12-27] MEDS: ceFAZolin 1 GM in Premix Bag 1 BAG IV SCH ×3 (05:47→22:18)
[2016-12-27] MEDS: Sodium Chloride 0.9% 10 ML Syringe FLUSH PRN ×5 (05:47→22:17)
[2016-12-27] MEDS: Insulin Aspart 100 Units/ML 3 ML Pen SUBCUT SCH ×6 (08:21→17:14)
[2016-12-27] MEDS: Benazepril 10 MG Tab PO SCH (08:25)
[2016-12-27] MEDS: metFORMIN 500 MG Tab PO SCH ×2 (08:25→17:15)
[2016-12-27] MEDS: Aspirin 81 MG Tab.EC PO SCH (08:25)
[2016-12-27] MEDS: Lutein/Minerals/Vit A,C & E Tab PO SCH (08:25)
[2016-12-27] MEDS: Calcium Carbonate/Vitamin D3 1250 MG-200 Unit Tab PO SCH (08:26)
[2016-12-27] MEDS: Enoxaparin 40 MG/0.4 ML Syringe SUBCUT SCH (08:28)
[2016-12-27] MEDS: EYE EYEBOTH SCH ×2 (08:29→20:49)
[2016-12-27] MEDS: TIMOLOL EYEBOTH SCH ×2 (08:29→20:49)
[2016-12-27] MEDS: BRIMONIDINE TARTRATE EYEBOTH SCH ×2 (08:29→20:49)
[2016-12-27] MEDS: Hydrochlorothiazide 25 MG Tab PO SCH (09:00)
[2016-12-27] MEDS: Atenolol 50 MG Tab PO SCH (11:50)
[2016-12-27] MEDS: Simvastatin 10 MG Tab PO SCH (20:47)
[2016-12-27] MEDS: amLODIPine 5 MG Tab PO SCH (20:47)
[2016-12-27] MEDS: Insulin Detemir 100 Units/ML 3 ML Pen SUBCUT SCH (21:03)
[2016-12-27] MEDS: Latanoprost 0.005% Ophth Soln 2.5 ML Bottle EYEBOTH SCH (21:06)
[2016-12-28] MEDS: Sodium Chloride 0.9% 10 ML Syringe FLUSH PRN ×2 (05:44→06:19)
[2016-12-28] MEDS: ceFAZolin 1 GM in Premix Bag 1 BAG IV SCH ×2 (05:47→14:08)
[2016-12-28] MEDS: Insulin Aspart 100 Units/ML 3 ML Pen SUBCUT SCH ×4 (08:38→12:12)
[2016-12-28] MEDS: metFORMIN 500 MG Tab PO SCH (08:49)
[2016-12-28] MEDS: Calcium Carbonate/Vitamin D3 1250 MG-200 Unit Tab PO SCH (08:52)
[2016-12-28] MEDS: Hydrochlorothiazide 25 MG Tab PO SCH (08:53)
[2016-12-28] MEDS: Aspirin 81 MG Tab.EC PO SCH (08:53)
[2016-12-28] MEDS: Lutein/Minerals/Vit A,C & E Tab PO SCH (08:54)
[2016-12-28] MEDS: Enoxaparin 40 MG/0.4 ML Syringe SUBCUT SCH (08:55)
[2016-12-28] MEDS: Atenolol 50 MG Tab PO SCH (08:55)
[2016-12-28] MEDS: Benazepril 10 MG Tab PO SCH (08:56)
[2016-12-28] MEDS: BRIMONIDINE TARTRATE EYEBOTH SCH (08:57)
[2016-12-28] MEDS: EYE EYEBOTH SCH (08:57)
[2016-12-28] MEDS: TIMOLOL EYEBOTH SCH (08:57)
[2016-12-28 09:02] VITALS: BP 140/54
[2016-12-28] MEDS ORDERED: Insulin Aspart 100 Units/ML 3 ML Pen SUBCUT ONE (11:31)
--- NOTE | 2016-12-28 13:35 | CR ---
CLINICAL HISTORY: 76-year-old female hysterectomy for leiomyosarcoma, cholelithiasis and "diminished sounds left lower lobe. INTERPRETATION: Right supraventricular central venous line. Calcifications arch of the aorta. Normal cardiac silhouette without alveolar edema or dependent pleural effusion. No lung mass, hilar lymphadenopathy, focal lobar pneumonia or atelectasis/collapse. No pneumothorax. CONCLUSION: No acute cardiopulmonary abnormality.
--- NOTE | 2016-12-29 07:32 | DISCH ---
FINAL DIAGNOSES: 1. Left hip septic arthritis. 2. Anemia. 3. Diabetes mellitus type 2. 4. Hypertension. 5. Dyslipidemia. SUMMARY OF HOSPITAL COURSE: Ms. Dee Dodson is a 76-year-old female who was admitted to swing bed from [facility]. The patient was having chills and complaining of onset of pain at the left hip. Ultrasound showed large collection of fluid in the left hip, which upon aspiration grew Streptococcus. Dr. Hood saw the patient during hospitalization. The patient was started on intravenous antibiotics and discharged on Rocephin. She is feeling better and will be discharged as recommended by Dr. Chen. PHYSICAL EXAMINATION: General: At discharge, the patient is alert, oriented to place, time, and person. Head: Atraumatic and normocephalic. Ear, Nose, and Throat: Unremarkable. Chest: Supple. Abdomen: Soft, nontender. Extremities: No pedal edema. No finger clubbing. Skin: No rash. [facility] /[id number]
== END 2016-12-28 15:50 | disposition home or self-care (01) | DRG 550 ==
LOC: UNDOADMIN 11-24 14:21 → DL.MS 11-24 14:21
PROVIDERS: ADMIT Internal Medicine; ATTEND Internal Medicine
DX: M00.252 Other streptococcal arthritis, left hip (principal); B95.5 Unspecified streptococcus as the cause of diseases classified elsewhere; D64.9 Anemia, unspecified; E11.65 Type 2 diabetes mellitus with hyperglycemia; Z79.4 Long term (current) use of insulin; Z79.84 Long term (current) use of oral hypoglycemic drugs; Z66 Do not resuscitate; I10 Essential (primary) hypertension; E78.5 Hyperlipidemia, unspecified; Z79.82 Long term (current) use of aspirin; Z88.2 Allergy status to sulfonamides
CPT/HCPCS: 36415; 71010; 80048; 82565; 82962; 84460; 85025; 85651; 86140; 97162-GP; 97165-GO; A9270-GY; J0690; J1650; J1815-GY; J3420; J7050

== ENCOUNTER 2017-04-29 06:26 | Day surgery (SDC) | payer MEDICARE, OTHER ==
[~2017-04-29 06:26] MED LIST: Midazolam 1 MG/ML 2 ML SDV ONE; fentaNYL 100 MCG/2 ML SDV ONE
[2017-04-29] MEDS ORDERED: Sodium Chloride 0.9% 10 ML Syringe FLUSH PRN (06:30)
[2017-04-29] MEDS ORDERED: Dextrose 5%-0.45% NaCl 1,000 ML IV SCH (06:30)
[2017-04-29] MEDS ORDERED: fentaNYL 100 MCG/2 ML SDV IV ONE ×3 (07:42→16:39)
[2017-04-29] MEDS ORDERED: Midazolam 1 MG/ML 2 ML SDV IV ONE ×3 (07:43→16:39)
--- NOTE | 2017-04-29 08:38 | OR ---
DATE: 04/29/2017 PROCEDURE: Esophagogastroduodenoscopy and multiple pinch biopsies. INSTRUMENT USED: GIF-H180 Olympus video panendoscope. PREMEDICATIONS: No oral topical anesthesia used. Fentanyl 100 mcg intravenous, Versed 1.5 mg intravenous, nasal O2 cannula. The procedure was done under pulse oximetry, BP recording, and satellite project site monitor. INDICATION: The patient with unexplained iron-deficiency anemia. Esophagogastroduodenoscopy is performed for detection of any active erosive lesions. Hercules esophagus and/or malignancy also under consideration. Small bowel biopsies to be obtained for celiac disease if indicated. Endoscopic hemostasis therapy if needed. DESCRIPTION OF PROCEDURE: The scope was passed with ease. Adequate visualization of the esophagus was made from proximal to distal areas. Prominent venous channels were noted in the upper esophagus. Photographs were taken. No distal esophageal stricture. No uphill distal esophageal varices. No esophageal polyp or tumor mass identified. No evidence of erosive esophagitis by [place] criteria. Z-line was seen at around 40 cm distal to the oral verge, configuration consistent with grade 1 by ZAP classification. No proximal gastric varices noted. Gastric fundus examination by retroflexion showed no polypoid lesions. No gastric ulcer, malignant mass, or vascular ectasia identified. Scattered erosions were noted in the antrum. Multiple pinch biopsies were taken from the gastric antrum and proximal body and sent for PyloriTek test for H. pylori and histopathology. Some pylorospasm was noted. Duodenal bulb showed no ulcer. Visualized second part of the duodenum was unremarkable. Multiple pinch biopsies 4 in number were taken from different areas of the second part of the duodenum, and tissues were also obtained from the duodenal bulb at 9 o'clock and 12 o'clock positions and sent for any histopathologic evidence of celiac disease. No bleeding was noted from any of the visualized areas at the completion of examination. Photographs were taken of the duodenal bulb, gastric antrum, fundus, distal and proximal esophagus. No bleeding was noted from any of the visualized areas at the completion of examination. IMPRESSION: Gastric antral erosions. The patient tolerated the procedure well. [facility] /[id number]
--- NOTE | 2017-04-29 08:47 | LETTER ---
04/29/2017 Betty Bradshaw MD Oncology Services [address] [place] [address] RE: DEE DODSON : [address] Bradshaw: Ms. Dee Dodson had esophagogastroduodenoscopy done this morning, and she tolerated the procedure well. I herewith send a copy of the endoscopy note and photographs for your review. Thank you. Sincerely, [facility] /[id number]
[2017-04-29 10:19] VITALS: BP 140/56
== END 2017-04-29 09:55 | disposition home or self-care (01) ==
LOC: DL.ENDO 06:26
PROVIDERS: ATTEND Internal Medicine Gastroenterology
DX: K25.9 Gastric ulcer, unspecified as acute or chronic, without hemorrhage or perforation (principal); D50.9 Iron deficiency anemia, unspecified; E66.09 Other obesity due to excess calories; H40.9 Unspecified glaucoma; I10 Essential (primary) hypertension; E11.9 Type 2 diabetes mellitus without complications; Z88.2 Allergy status to sulfonamides; Z86.010 Personal history of colon polyps; Z90.710 Acquired absence of both cervix and uterus; Z98.890 Other specified postprocedural states
CPT/HCPCS: 43239; 87077; J2250; J3010; J7042; 88305

== ENCOUNTER 2017-05-03 06:32 | Day surgery (SDC) | payer MEDICARE, OTHER ==
[~2017-05-03 06:32] MED LIST changes: +Dextrose 5%-0.45% NaCl 1,000 ML IV SCH; +Sodium Chloride 0.9% 10 ML Syringe FLUSH PRN
[2017-05-03] MEDS ORDERED: fentaNYL 100 MCG/2 ML SDV IV ONE ×3 (07:49→16:00)
[2017-05-03] MEDS ORDERED: Midazolam 1 MG/ML 2 ML SDV IV ONE ×7 (07:50→16:00)
--- NOTE | 2017-05-03 09:44 | OR ---
DATE: 05/03/2017 PROCEDURE: Total colonoscopy, NBI, cold snare polypectomy, and multiple pinch biopsies. INSTRUMENT USED: PCF-H180AL Olympus video colonoscope. PREMEDICATIONS: Fentanyl 100 mcg intravenous, Versed 4 mg intravenous. Nasal O2 cannula. The procedure was done under pulse oximetry, BP recording, and pediatric lpn. INDICATION: The patient with iron-deficiency anemia. Colonoscopic examination is done for detection of any polypoid lesions and removal, endoscopic hemostasis therapy if needed. DESCRIPTION OF PROCEDURE: Initial rectal exam was unremarkable. Rigid anoscopy was normal. The colonoscope was passed with ease. Scattered diverticula were noted in the distal left colon. The scope was passed with ease up to the ileocecal area, photographs were taken of the normal-appearing cecum, identified by landmarks of appendiceal orifice and double-bulged ileocecal folds. In the proximal descending colon, 3 mm sized benign-appearing polyp was noted, photograph was taken, cold snare polypectomy was done, the tissue was retrieved and sent for histopathology. No stricture. No vascular ectasia. No large isolated ulcerations seen. No evidence of diffuse inflammatory bowel disease in the form of friability, contact bleeding, or ulcerations. In the hepatic flexure area, large circumferential malignant-appearing lesion was noted, photographs were taken, numerous pinch biopsies were obtained and sent for histopathology. Probing the proximal sides of folds and flexures, using adequate distention and clearing of the stool material, withdrawal of the scope was made. No bleeding was noted from any of the visualized areas at the completion of examination. IMPRESSION: 1. Diverticulosis. 2. Diminutive descending colon polyp. 3. Colonic malignancy. The patient tolerated the procedure well. [facility] /[id number]
--- NOTE | 2017-05-03 10:26 | LETTER ---
05/03/2017 Dorothy Bradshaw MD [facility] [address] [facility] [place] [address] RE: DEE DODSON : [address] Bradshaw: Ms. Dee Dodson had colonoscopic examination done this morning and she tolerated the procedure well. I herewith send a copy of the endoscopy note and photographs for your review. Thank you. Sincerely, [facility] /[id number]
[2017-05-03 12:22] VITALS: BP 130/49
== END 2017-05-03 10:30 | disposition home or self-care (01) ==
LOC: DL.ENDO 06:32
PROVIDERS: ATTEND Internal Medicine Gastroenterology
DX: C18.3 Malignant neoplasm of hepatic flexure (principal); K63.5 Polyp of colon; K57.30 Diverticulosis of large intestine without perforation or abscess without bleeding; E66.9 Obesity, unspecified; I10 Essential (primary) hypertension; E11.9 Type 2 diabetes mellitus without complications; Z90.710 Acquired absence of both cervix and uterus; Z88.2 Allergy status to sulfonamides; Z79.82 Long term (current) use of aspirin; Z98.890 Other specified postprocedural states
CPT/HCPCS: 45380; 45385; J2250; J3010; J7042; 88305; 88341; 88342

== ENCOUNTER 2018-05-24 06:53 | Day surgery (SDC) | payer MEDICARE, OTHER ==
[2018-05-24] MEDS ORDERED: Midazolam 1 MG/ML 2 ML SDV IV ONE ×6 (06:54→08:14)
[2018-05-24] MEDS ORDERED: fentaNYL 100 MCG/2 ML SDV IV ONE ×3 (06:54→08:00)
--- NOTE | 2018-05-24 09:26 | OR ---
DATE: 05/24/2018 PROCEDURE: Total colonoscopy. INSTRUMENT USED: PCF-H180 AL Olympus video colonoscope. PREMEDICATIONS: Fentanyl 100 mcg intravenous, Versed 4 mg intravenous. Nasal O2 cannula. The procedure was done under pulse oximetry, BP recording, and clinical research monitor. INDICATIONS: The patient with previous multiple abdominal surgical procedures including right hemicolectomy for adenocarcinoma. Surveillance colonoscopic examination is done for detection of any polypoid lesions and removal. Endoscopic hemostasis therapy if needed. DESCRIPTION OF PROCEDURE: Initial rectal exam showed external hemorrhoidal tags. Rigid anoscopy was normal. The colonoscope was passed with ease. Few scattered diverticula were noted in the distal left colon along with deformity. The scope was passed with ease up to the area of surgical anastomosis. Photographs were taken. No bleeding was noted from any of the visualized areas at the commencement of the examination. Bowel preparation was found to be adequate. No stricture. No vascular ectasia. No large isolated ulcerations seen. No evidence of diffuse inflammatory bowel disease in the form of friability, contact bleeding, or ulcerations. No polyp or tumor mass identified. Probing the proximal sides of folds and flexures, using adequate distention and clearing up the stool material, withdrawal of the scope was made. No bleeding was noted from any of the visualized areas at the completion of examination. IMPRESSION: 1. External hemorrhoids. 2. Diverticulosis. The patient tolerated the procedure well. [facility] /[id number]
--- NOTE | 2018-05-24 10:47 | LETTER ---
05/24/2018 Betty Bradshaw MD [facility] [address] [place] [address], [place] [address] RE: DEE DODSON : [address] Bradshaw: Ms. Dee Dodson had colonoscopic examination done this morning and she tolerated the procedure well. I herewith send a copy of the endoscopy note and photographs for your review. Thank you. Sincerely, [facility] /[id number]
[2018-05-24 11:12] VITALS: BP 148/53
== END 2018-05-24 10:47 | disposition home or self-care (01) ==
LOC: DL.ENDO 06:53
PROVIDERS: ATTEND Internal Medicine Gastroenterology
DX: Z12.11 Encounter for screening for malignant neoplasm of colon (principal); K57.30 Diverticulosis of large intestine without perforation or abscess without bleeding; K64.4 Residual hemorrhoidal skin tags; I10 Essential (primary) hypertension; E11.9 Type 2 diabetes mellitus without complications; E66.09 Other obesity due to excess calories; D50.9 Iron deficiency anemia, unspecified; Z85.038 Personal history of other malignant neoplasm of large intestine; Z79.84 Long term (current) use of oral hypoglycemic drugs; Z90.49 Acquired absence of other specified parts of digestive tract
CPT/HCPCS: J1642; J2250; J3010; J7042; J7050

== ENCOUNTER → 2020-06-25 | Day surgery (SDC) | payer MEDICARE, OTHER ==
[~2020-06-25] MED LIST changes: +Midazolam 1 MG/ML 2 ML SDV IV ONE; +fentaNYL 100 MCG/2 ML SDV IV ONE
[2020-06-25 11:19] VITALS: BP 135/53; PULSE 83
--- NOTE | 2020-06-25 13:04 | LETTER ---
06/25/2020 Aleisha Alvarado MD [facility] [address] [place] [address] RE: DEE DODSON : [address] Alvarado: Ms. Dee Dodson had esophagogastroduodenoscopy done this morning and she tolerated the procedure well. I herewith send a copy of the endoscopy note and photographs for your review. Thank you. Sincerely, [facility] /[id number]
--- NOTE | 2020-06-25 13:46 | OR ---
DATE: 06/25/2020 PROCEDURES: Esophagogastroduodenoscopy, narrow-band imaging, and multiple pinch biopsies. INSTRUMENT USED: GIF-HQ190 Olympus video panendoscope. PREMEDICATIONS: No oral or topical anesthesia used. Fentanyl 50 mcg intravenous, Versed 1 mg intravenous, nasal O2 cannula. The procedure was done under pulse oximetry, BP recording, and monitoring analyst. INDICATION: The patient with chronic anemia unexplained and recent CT suggestive of malignant area of pylorus. Esophagogastroduodenoscopy is performed for detection of any active erosive lesions, malignancy also under consideration, H pylori status to be determined, endoscopic hemostasis therapy if needed. PROCEDURE IN DETAIL: The scope was passed with ease. Adequate visualization of the esophagus was made from proximal to distal areas. Downhill esophageal varices were noted in the upper esophagus without bleeding from them. No distal esophageal stricture. No Candice-Sainz tear. No evidence of erosive esophagitis by Mcguffey criteria. No esophageal polyp or tumor mass identified. Z-line was seen at around 39 cm distal to the oral verge, configuration consistent with grade 1 by ZAP classification. No proximal gastric varices noted. Gastric fundus examination by retroflexion showed no polypoid lesions. Prominent benign-appearing gastric body folds were noted, NBI views were obtained, photographs were taken. No gastric ulcer, malignant mass, or vascular ectasia identified. There was some pylorospasm noted. Duodenal bulb showed no ulcer. Visualized second part of the duodenum was unremarkable. Multiple pinch biopsies were taken from the gastric antrum and proximal body and sent for PyloriTek test for H pylori and histopathology. No bleeding was noted from any of the visualized areas at the completion of examination. Photographs were taken of the duodenal bulb, gastric antrum, fundus, distal as well as proximal esophagus. IMPRESSION: Downhill esophageal varices. The patient tolerated the procedure well. [facility] /[id number]
== END | disposition home or self-care (01) ==
LOC: DL.ENDO 07:20
PROVIDERS: ATTEND Internal Medicine Gastroenterology
DX: K29.50 Unspecified chronic gastritis without bleeding (principal); I85.00 Esophageal varices without bleeding; E66.09 Other obesity due to excess calories; I10 Essential (primary) hypertension; H40.9 Unspecified glaucoma; D64.9 Anemia, unspecified; Z85.038 Personal history of other malignant neoplasm of large intestine; Z98.890 Other specified postprocedural states; Z87.19 Personal history of other diseases of the digestive system; Z90.710 Acquired absence of both cervix and uterus; Z85.42 Personal history of malignant neoplasm of other parts of uterus; Z68.25 Body mass index [BMI] 25.0-25.9, adult
CPT/HCPCS: 87077; J1642; J2250; J3010; J7042

== ENCOUNTER 2021-09-16 05:54 | Day surgery (SDC) | payer MEDICARE, OTHER ==
[~2021-09-16 05:54] MED LIST changes: -Dextrose 5%-0.45% NaCl 1,000 ML IV SCH; -Midazolam 1 MG/ML 2 ML SDV IV ONE; -Sodium Chloride 0.9% 10 ML Syringe FLUSH PRN; -fentaNYL 100 MCG/2 ML SDV IV ONE
[2021-09-16] MEDS ORDERED: fentaNYL 100 MCG/2 ML SDV IV ONE ×3 (05:55→07:10)
[2021-09-16] MEDS ORDERED: Midazolam 1 MG/ML 2 ML SDV IV ONE ×5 (05:55→07:30)
[2021-09-16] MEDS: Sodium Chloride 0.9% 10 ML Syringe FLUSH PRN ×2 (06:33→09:39)
[2021-09-16] MEDS ORDERED: Dextrose 5%-0.45% NaCl 1,000 ML IV SCH (07:45)
--- NOTE | 2021-09-16 10:19 | OR ---
DATE: 09/16/2021 PROCEDURE: Total colonoscopy, NBI and multiple cold snare polypectomies. INSTRUMENT USED: PCF-H190DL Olympus video colonoscope. PREMEDICATIONS: Fentanyl 100 mcg intravenous, Versed 3.5 mg intravenous. Nasal O2 cannula. The procedure was done under pulse oximetry, BP recording, and manager monitoring. INDICATION: The patient with previous colon cancer resection and recent rectal bleeding. Colonoscopic examination is done for detection of any polypoid lesions and removal, endoscopic hemostasis therapy if needed. DESCRIPTION OF PROCEDURE: Initial rectal exam showed external hemorrhoidal tags. Rigid anoscopy showed small internal hemorrhoids without bleeding from them. The colonoscope was passed with ease. Numerous scattered diverticula were noted in the distal left colon along with deformity. In the proximal sigmoid colon, 5 mm sized benign-appearing polyp was noted, NBI views were obtained, photographs were taken, cold snare polypectomy was done, the tissue was retrieved and sent for histopathology. The scope was passed with ease up to the area of surgical anastomosis, photographs were taken. No bleeding was noted from any of the visualized areas at the commencement of the examination. No stricture. No vascular ectasia. No large isolated ulcerations seen. No evidence of diffuse inflammatory bowel disease in the form of friability, contact bleeding, or ulcerations. In the proximal transverse colon, 5 mm sized benign-appearing polyp was noted, photographs were taken, NBI views were obtained, cold snare polypectomy was done, the tissue was retrieved and sent for histopathology. The bowel preparation was found to be adequate, Freer scale 2 in the transverse and left colon. Probing the proximal sides of folds and flexures using adequate distention and clearing up the stool material, withdrawal of the scope was made. No bleeding was noted from any of the visualized areas at the completion of the examination. IMPRESSION: 1. External and internal hemorrhoids. 2. Diverticulosis. 3. Colonic polyps. The patient tolerated the procedure well. [facility] /[id number]
[2021-09-16 10:29] VITALS: BP 163/55; PULSE 97
--- NOTE | 2021-09-16 12:14 | LETTER ---
09/16/2021 RE: DEE DODSON : 1940 Aleisha Alvarado MD [facility], [address] Alvarado: Ms. Dee Dodson had colonoscopic examination done this morning, and she tolerated the procedure well. I herewith send a copy of the endoscopy note and photographs for your review. Thanking you. Sincerely, [facility] /[id number]
== END 2021-09-16 09:57 | disposition home or self-care (01) ==
LOC: DL.ENDO 05:54
PROVIDERS: ATTEND Internal Medicine Gastroenterology
DX: D12.3 Benign neoplasm of transverse colon (principal); K64.4 Residual hemorrhoidal skin tags; K64.8 Other hemorrhoids; K57.30 Diverticulosis of large intestine without perforation or abscess without bleeding; Z85.038 Personal history of other malignant neoplasm of large intestine; I10 Essential (primary) hypertension; E11.9 Type 2 diabetes mellitus without complications; Z98.890 Other specified postprocedural states; H40.9 Unspecified glaucoma
CPT/HCPCS: 45385; 88305; J1642; J2250; J3010; J7042

== ENCOUNTER 2022-03-24 05:19 | Day surgery (SDC) | payer MEDICARE, OTHER ==
[~2022-03-24 05:19] MED LIST changes: -Midazolam 1 MG/ML 2 ML SDV ONE; +Sodium Chloride 0.9% 10 ML Syringe FLUSH SCH; -fentaNYL 100 MCG/2 ML SDV ONE
[2022-03-24] MEDS ORDERED: Midazolam 1 MG/ML 2 ML SDV IV ONE ×2 (05:20→06:25)
[2022-03-24] MEDS ORDERED: fentaNYL 100 MCG/2 ML SDV IV ONE ×3 (05:20→06:26)
[2022-03-24] MEDS ORDERED: Dextrose 5%-0.45% NaCl 1,000 ML IV SCH (06:00)
[2022-03-24] MEDS ORDERED: Sodium Chloride 0.9% 10 ML Syringe FLUSH PRN (06:00)
[2022-03-24] MEDS ORDERED: fentaNYL 100 MCG/2 ML SDV ONE (06:11)
[2022-03-24] MEDS ORDERED: Midazolam 1 MG/ML 2 ML SDV ONE (06:11)
[2022-03-24 08:58] VITALS: BP 168/57; PULSE 75
== END 2022-03-24 08:48 | disposition home or self-care (01) ==
LOC: DL.ENDO 05:19
PROVIDERS: ATTEND Internal Medicine Gastroenterology
DX: K29.50 Unspecified chronic gastritis without bleeding (principal); K31.7 Polyp of stomach and duodenum; K44.9 Diaphragmatic hernia without obstruction or gangrene; I10 Essential (primary) hypertension; E11.9 Type 2 diabetes mellitus without complications; I85.00 Esophageal varices without bleeding; D50.9 Iron deficiency anemia, unspecified; C54.1 Malignant neoplasm of endometrium; H40.9 Unspecified glaucoma; Z98.890 Other specified postprocedural states
CPT/HCPCS: 43239; J2250; J3010; J7042